=== PATIENT | male | born 1985 | race Caucasian/White ===

== ENCOUNTER 2019-08-18 00:18 | Inpatient (IN) | payer BC, MEDICAID ==
[~2019-08-18] VITALS: Ht 182.9 cm; Wt 99.8 kg
[2019-08-18] VITALS (92 sets, daily range): BP systolic 93–192; BP diastolic 5–119
[2019-08-18] MEDS ORDERED: ONDANSETRON 4 MG/2 ML VIAL ONE ×2 (00:20→00:42)
--- NOTE | 2019-08-18 00:20 | NUR ---
PT VOMITING FOOD PRODUCTS. ADMINISTERED ZOFRAN 4 MG IVP.
--- NOTE | 2019-08-18 00:20 | NUR ---
TRANSFERED TO BED 10 [facility] WITH FULL ASSIST. BAGGING VIA BVM IN PROGRESS. RT, , EMT, PRIMARY RN AT BEDSIDE. CLOTHES CUT. MAILHOUSE OPERATOR PLACED. CRASH CART AND RAPID INTUBATION TRAY AT BEDSIDE.
--- NOTE | 2019-08-18 00:25 | NUR ---
SUCCESSFULLY INTUBATED WITH 7.5 CM ET TUBE 24 CM @ THE LIP.
--- NOTE | 2019-08-18 00:27 | NUR ---
HR DROPPED TO 39 BPM. RADIAL PULSES FELT SLOW, THREADY BILATERALLY. ATROPINE 1 MG IVP ADMINISTERED PER DR. COATES.
--- NOTE | 2019-08-18 00:28 | NUR ---
NO RADIAL, FEMORAL, CAROTID PULSES FELT. CPR INITIATED. ADMINISTERED EPI. CODE STARTED.
--- NOTE | 2019-08-18 00:30 | NUR ---
RADIAL PULSES FELT BILATERALLY. CPR STOPPED. EPI ADMINISTERED.
[2019-08-18] MEDS ORDERED: DILTIAZEM 25 MG/5 ML VIAL IVP ONE (00:43)
[2019-08-18] MEDS ORDERED: PROPOFOL 1000 MG/100 ML PREMIX 100 ML IV ONE ×2 (00:44→00:50)
[2019-08-18] MEDS ORDERED: NACL 0.9% 3,000 ML IV ONE (00:50)
[2019-08-18] MEDS ORDERED: ETOMIDATE 20 MG/10 ML VIAL IVP ONE ×2 (00:50)
[2019-08-18] MEDS ORDERED: SUCCINYLCHOLINE CHLORIDE 200 MG/10 ML VIAL IVP ONE ×2 (00:50)
[2019-08-18] MEDS ORDERED: ONDANSETRON 4 MG/2 ML VIAL IVP ONE (00:50)
[2019-08-18] MEDS ORDERED: PROCHLORPERAZINE 10 MG/2 ML VIAL IVP ONE (00:50)
[2019-08-18] MEDS ORDERED: PROCHLORPERAZINE 10 MG/2 ML VIAL ONE (00:54)
--- NOTE | 2019-08-18 01:00 | NUR ---
16 CZECH INDWELLING DELGADO CATH PLACED. STERIL TECHNIQUE PERFORMED. 200ML CLEAR YELLOW URINE REMOVED UPON INSERTION. SECRED TO LEFT LEG. BAG HUNG ON LOWER SECTION OF BED BELOW PT. PT TOLLERATED PROCEDURE WELL.
[2019-08-18] MEDS ORDERED: SODIUM BICARBONATE 8.4% PFS 50 MEQ/50 ML SYR IVP ONE (01:05)
--- NOTE | 2019-08-18 01:05 | NUR ---
REVIEWED ABG SAMPLE REPORT INCREASED RATE TO 20 DESCENDING SATURATION TO 88% ON FIO2 OF 100% INCREASED PEEP TO 8 ERMD AWARE
[2019-08-18 01:06] LABS: APPEARANCE,URINE SL CLOUDY (CLEAR); BILIRUBIN,URINE NEGATIVE (NEGATIVE); BLOOD, URINE 1+ (NEGATIVE); COLOR,URINE YELLOW (YELLOW); LEUKOCYTE ESTERASE ,URINE NEGATIVE (NEGATIVE); NITRITE, URINE NEGATIVE (NEGATIVE); PH,URINE 5.5 (5.0-9.0); UGLUCOSE 2+ (NEGATIVE)
[2019-08-18] MEDS ORDERED: KETAMINE 10 MG/ML UD SYR **ER IVP ONE ×2 (01:09→01:11)
[2019-08-18] MEDS ORDERED: KETAMINE 500 MG/5 ML VIAL IVP ONE (01:10)
[2019-08-18 01:11] LABS: HEMATOCRIT 42.3 % (36-52); HEMOGLOBIN 13.5 g/dL (12.0-18.0); MEAN CORPUSCULAR HEMOGLOBIN 32 pg (27-31); MEAN CORPUSCULAR HGB CONC 32 g/dL (33-37); MEAN CORPUSCULAR VOLUME 99.8 fL (80-94); PLATELET COUNT (AUTO) 356 K/uL (140-450); RED BLOOD CELL COUNT(AUTO) 4.23 MIL/uL (4.20-6.10); WHITE BLOOD COUNT (AUTO) 23.9 K/uL (4.8-10.8)
--- NOTE | 2019-08-18 01:13 | NUR ---
NGT NOT SEEN IN XRAY. ATTEMPTING REINSERT.
[2019-08-18 01:15] LABS: BARBITURATE, URINE NEG. ng/ml (NEG <=200); BENZODIAZEPINE, URINE NEG. ng/mL (NEG <=200); CANNABINOID, URINE NEG. ng/mL (NEG <=50); COCAINE, URINE NEG. ng/mL (NEG <=300); OPIATE, URINE NEG. ng/mL (NEG <=2000); PHENCYCLIDINE SCREEN,URINE NEG. ng/mL (NEG <=25)
[2019-08-18 01:18] LABS: ANION GAP 18.1 (8-16); CARBON DIOXIDE 26.9 mmol/L (21-32); CHLORIDE 104 mmol/L (98-107); CREATININE 1.3 mg/dL (0.7-1.3); GFR ARICAN-AMERICAN 82 mL/min (>90); GLUCOSE 300 mg/dL (74-106); SODIUM SERUM 145 mmol/L (136-145); UREA NITROGEN, BLOOD 22 mg/dL (7-18)
[2019-08-18 01:19] LABS: PROTHROMBIN TIME 9.4 secs (10.8-13.4)
[2019-08-18 01:22] LABS: EOSINOPHILS % (MANUAL) 3 % (0-4); LYMPHOCYTES % (MANUAL) 64 % (20-46); MONOCYTES % (MANUAL) 3 % (5-12)
[2019-08-18 01:24] LABS: ASPARTATE AMINOTRANSFERASE 60 U/L (15-37); TOTAL BILIRUBIN 0.2 mg/dL (0.0-1.0)
[2019-08-18 01:25] LABS: ACETAMINOPHEN < 0.5 ug/ml (10-30); ALBUMIN 3.3 g/dL (3.4-5.0); SALICYLATE < 2.8 mg/dL (2.8-20.0)
[2019-08-18] MEDS ORDERED: PIPERACILLIN/TAZOBACTAM 3.375 GM in DEXTROSE 5% 50 ML IV ONE (01:25)
[2019-08-18] MEDS ORDERED: VANCOMYCIN 1,000 MG in DEXTROSE 5% 250 ML IV ONE (01:25)
[2019-08-18] MEDS ORDERED: INSULIN REGULAR, HUMAN 100 UNIT/ML VIAL SUBQ ONE (01:25)
[2019-08-18] MEDS ORDERED: VANCOMYCIN 1,000 MG VIAL ONE (01:26)
[2019-08-18] MEDS ORDERED: PIPERACILLIN/TAZOBACTAM 3.375 GM VIAL IV ONE ×2 (01:26→04:34)
[2019-08-18 01:32] LABS: RBC,URINE 20-50 /HPF (0-5); WBC,URINE 0-5 /HPF (0-5)
[2019-08-18 01:34] LABS: CKMB RELATIVE INDEX 0.1 (0.0-2.5); CREATINE KINASE MB 0.7 ng/mL (0-3.6)
--- NOTE | 2019-08-18 01:35 | NUR ---
Unable to insert NGT via nares. # 16 FR NG tube placed orally. Placement checked by auscultation of instilled air into stomach and aspiration of gastric contents. Tubing taped in place to prevent dislodging. Patient intubated. Confirmed placement with XRAY.
[2019-08-18 01:53] LABS: ACETONE, SERUM NEGATIVE (NEGATIVE)
[2019-08-18] MEDS ORDERED: LORazepam 2 MG/ML VIAL IVP ONE (01:55)
[2019-08-18 01:58] LABS: LIPASE 202 U/L (73-393)
--- NOTE | 2019-08-18 02:00 | NUR ---
NG TUBE, #16 YEMENI, INSERTED ORALLY. IMMEDIATE SUCTION OF 100 ML OF EMESIS. CHECKED WITH AUSCLETATION AND PLACEMENT CONFIRMED WITH XR. IN LOWER PORTION OF STOMACH. PT TOLLERATED WELL.
--- NOTE | 2019-08-18 02:12 | NUR ---
PT TAKEN TO CT VIA GURNORM. PRIMARY RN, EMT, AND RT PRESENT.
--- NOTE | 2019-08-18 02:30 | NUR ---
RETURNED FROM CT; TOLERATED WELL. STATUS GUARDED.
[2019-08-18 02:31] LABS: FREE T4 (FREE THYROXINE) 0.6 ng/dL (0.76-1.46); THYROID STIMULATING HORMONE 43.37 uIU/mL (0.34-3.74)
[2019-08-18] MEDS ORDERED: DEXTROSE 50% 50 ML SYR IVP ONE ×2 (02:46→05:10)
--- NOTE | 2019-08-18 02:46 | NUR ---
RT AT BEDSIDE PERFORMING FACIAL HYIGENE AND REPLACING TAPE.
[2019-08-18] MEDS ORDERED: NACL 0.9% 1,000 ML IV SCH (02:51)
[2019-08-18] MEDS ORDERED: ONDANSETRON 4 MG/2 ML VIAL IM/IVP PRN (02:55)
[2019-08-18] MEDS ORDERED: DOCUSATE SODIUM 100 MG GELCAP PO PRN (02:55)
[2019-08-18] MEDS ORDERED: MORPHINE SULFATE 2 MG/ML SYR IVP PRN (02:55)
[2019-08-18] MEDS ORDERED: ACETAMINOPHEN 325 MG TAB PO PRN (02:55)
[2019-08-18] MEDS ORDERED: HYDROcodone/APAP 7.5/325 MG 1 TAB PO PRN (02:55)
[2019-08-18] MEDS ORDERED: ACETAMINOPHEN 325 MG SUPP RC ONE (02:58)
[2019-08-18] MEDS ORDERED: TAP5 PO (03:10)
--- NOTE | 2019-08-18 03:15 | NUR ---
PT SEDATED. ET TUBE IN PLACE, MIDLINE. VENTILATOR CONNECTED. NO MOVEMENT. PROPOFOL DRIP AT 15 MCG/KG/MIN. NO TITRATION NEEDED AT THIS TIME. CONDITION GUARDED. WILL CONTINUE TO CLOSELY MONITOR.
[2019-08-18] MEDS ORDERED: ALBUTEROL SULFATE/IPRATROPIU 3 ML SOL IH PRN (03:30)
[2019-08-18] MEDS ORDERED: methylPREDNISolone SS 125 MG/2 ML VIAL IVP SCH (03:45)
[2019-08-18] MEDS ORDERED: LORazepam 2 MG/ML VIAL IVP SCH (03:50)
[2019-08-18] MEDS: DEXT 5% / NACL 0.9% 500 ML IV SCH ×4 (04:00→18:08)
--- NOTE | 2019-08-18 04:03 | NUR ---
TRANSFERRED TO ICU-5 PATIENT REMAINS ON VENTILATOR OXYGEN CONNECTED TO E-TANK TOLERATED TRANSFER WELL WITHOUT ADVERSE REACTIONS NOTED SATURATION 100% HR 101
[2019-08-18 04:06] LABS: MAGNESIUM 2.3 mg/dL (1.8-2.4); PHOSPHORUS 8.3 mg/dL (2.5-4.9)
[2019-08-18] MEDS ORDERED: LORazepam 2 MG/ML VIAL ONE (04:13)
--- NOTE | 2019-08-18 04:15 | NUR ---
PT ARRIVED IN THE UNIT VIA GURNEY FROM THE ER. VS STABLE AT THIS TIME. PT ON PROPOFOL DRIP AT 20MCG/KG/MIN WITH DRY WT AT 95KG. PT HAS VANCOMYCIN RUNNING UPON TRANSFER. DELGADO CATHETER IN PLACE. OGT IN PLACE. ETT TO VENT WITH SETTINGS FIO2 50%, TV 550, R18, AND PEEP 5. ALL PERIPHERAL IV SITES ARE PATENT, INTACT AND ASYMPTOMATIC. AFEBRILE. PERRL. LUNG SOUNDS CLEAR. S1+S2 HEARD. SR ON MONITOR. BS ACTIVE IN ALL QUADRANTS. ALL SAFETY PRECAUTIONS ARE KEPT IN PLACE.
--- NOTE | 2019-08-18 04:17 | NUR ---
REPORT GIVEN AND CARE TRANSFERED TO [facility], ICU 5. TRANSFERED VIA GURNEY WITH VSS. ACCOMPANIED BY DR WALKER, JAKE RN, YOLANDA RT, AND JOHNATHAN EMT.
--- NOTE | 2019-08-18 04:18 | NUR ---
SEDATED NO DISTRESS NOTED GOOD EQUAL CHEST RISE GOOD AERATION THROUGHOUT BILATERAL LUNG STEVENS
--- NOTE | 2019-08-18 04:44 | NUR ---
DR. TREVON WALKER AT BEDSIDE ICU-5 REVIEWED ABG SAMPLE REPORT DECREASED RATE TO 18 FIO2 TO 50% PEEP TO 5cmH2O Addendum: 08/18/19 at 0454 by Eliezer Herrera RT RIGHT JUGULAR PLACEMENT IN PROGRESS BY DR WALKER
--- NOTE | 2019-08-18 04:46 | NUR ---
SEDATED GOOD EQUAL CHEST RISE SEWER PIPE CLEANER TO SUCTION AFTER RIGHT JUGULAR PROCEDURE
[2019-08-18 05:01] LABS: MAGNESIUM 1.5 mg/dL (1.8-2.4); PHOSPHORUS 3.4 mg/dL (2.5-4.9)
[2019-08-18] MEDS ORDERED: ACETAMINOPHEN 650 MG SUPP RC ONE (05:10)
[2019-08-18 05:12] LABS: ANION GAP 14.9 (8-16); CARBON DIOXIDE 27.1 mmol/L (21-32)
--- NOTE | 2019-08-18 05:15 | NUR ---
CENTRAL LINE SUCCESSFULLY PUT IN PLACE BY DR. WALKER. WILL WAIT FOR THE CXR RESULT.
--- NOTE | 2019-08-18 05:30 | NUR ---
JAKE GALO, ORACLE REPORTS DEVELOPER ([phone]) FOR [facility] CONTACTED AND UPDATED ON PT'S STATUS AND ADMISSION TO ICU. JAKE STATES HE WILL BE CONTACTING PT'S FAMILY TO UPDATE ON STATUS.
--- NOTE | 2019-08-18 05:37 | NUR ---
RECEIVED A CALL FOR RADIOLOGY RESULT ON PT. ADVISED TO ADVANCE OGT 20CM.
--- NOTE | 2019-08-18 05:40 | NUR ---
ENDOTRACHEAL SUCTION FOR COPIOUS THIN BROWN SECRETIONS AIRWAY PATENT
--- NOTE | 2019-08-18 05:44 | NUR ---
CALLED DR. WALKER TO CLARIFY THE D50 ORDER AND TYLENOL. PER DR. WALKER DO NOT GIVE MEDICATION.
[2019-08-18] MEDS: PIPERACILLIN/TAZOBACTAM 3.375 GM in DEXTROSE 5% 50 ML IV SCH ×3 (05:45→20:19)
[2019-08-18 05:59] LABS: BASOPHILS % (AUTO) 0.3 % (0.0-2.0); EOSINOPHILS % (AUTO) 0.2 % (0.0-4.0); HEMATOCRIT 42.3 % (36-52); HEMOGLOBIN 13.9 g/dL (12.0-18.0); LYMPHOCYTES # (AUTO) 2.5 K/uL (2.0-11.5); LYMPHOCYTES % (AUTO) 22.4 % (20.5-51.1); MEAN CORPUSCULAR HEMOGLOBIN 32 pg (27-31); MEAN CORPUSCULAR HGB CONC 33 g/dL (33-37); MEAN CORPUSCULAR VOLUME 97.2 fL (80-94); MONOCYTES # (AUTO) 0.3 K/uL (0.8-1.0); MONOCYTES % (AUTO) 2.4 % (1.7-9.3); NEUTROPHILS # (AUTO) 8.3 K/uL (1.8-7.7); NEUTROPHILS % (AUTO) 74.7 % (42.2-75.2); PLATELET COUNT (AUTO) 113 K/uL (140-450); RED BLOOD CELL COUNT(AUTO) 4.36 MIL/uL (4.20-6.10); RED CELL DISTRIBUTION WIDTH 13.3 % (11.6-13.7)
[2019-08-18] MEDS: MAG SULF 2000 MG/WATER PREMIX 50 ML IV SCH ×2 (06:08→08:16)
--- NOTE | 2019-08-18 06:35 | NUR ---
PATIENT HAS BEEN SCREENED AND CATEGORIZED HIGH NUTRITION RISK. PATIENT WILL BE SEEN WITHIN 1-2 DAYS OF ADMISSION. 08/19/19-08/20/19 ROBERT DOSS MS, RDN
[2019-08-18] MEDS ORDERED: DEXTROSE 50% 50 ML SYR IVP PRN (06:40)
--- NOTE | 2019-08-18 06:40 | NUR ---
DR. HELMS AT BEDSIDE TO SEE PT. UPDATED HER REGARDING PT'S STATUS.
[2019-08-18] MEDS: ALBUTEROL SULFATE/IPRATROPIU 3 ML SOL IH SCH ×3 (06:48→19:43)
[2019-08-18] MEDS ORDERED: LEVOTHYROXINE 0.05 MG TAB PO SCH (07:00)
--- NOTE | 2019-08-18 07:15 | NUR ---
BEDSIDE REPORT RECEIVED FROM FIVE PIECE EXPANSION MAKER HAND NURSE, PT IN STABLE CONDITION, VSS ON MONITOR.
--- NOTE | 2019-08-18 07:20 | NUR ---
BEDSIDE REPORT RECEIVED FROM UTILITY WORKER DRIVER NURSE, JASEN ON MONITOR.
--- NOTE | 2019-08-18 07:40 | NUR ---
PT RESTING WITH EYES CLOSED, SEDATED TO RASS -3, PUPILS 1-2, SLUGGISH, VS STABLE, HR 98, RR 21, BP 117/64, RESP EVEN UNLABORED, ETT 24 AT LIP, 50% FIO2, RR 18, TV 550, PEEP 5, O2 SAT 100%, BS CLEAR BILAT, OGT IN PLACE, ABD ROUND SOFT, NON DISTENDED, BS + ALL 4Q, DELGADO IN PLACE, DRAINING YELLOW URINE TO GRAVITY, SKIN WARM DRY COLOR WNL, FLACC 0, PT IN SOFT WRIST RESTRAINTS, CENTRAL LINE TO RIJ, SITE WNL, PROPOFOL 20MCG/KG/MIN, DRY WT 95KG, D5NS @ 150/HR, AND MAGNESIUM INFUSING WELL. POC REVIEWED, ALL SAFETY MEASURES IN PLACE, WILL CONTINUE TO MONITOR.
--- NOTE | 2019-08-18 07:51 | NUR ---
PT ON CONTACT ISOLATION, RESTING WITH EYES CLOSED, FLACC 0, AROUSES TO PAINFUL STIMULI, NO SEDATION MEDICATIONS AT THIS TIME, RESP EVEN UNLABORED, ETT TO VENT, 30% FIO2, RR 16, TV 500, PEEP 5, BS CLEAR, DIMINISHED AT BASES, VS STABLE ON MONTOR, HR 88, RR 16, SAT 100, BP 117/74, NGT TO CONT FEED WITH VITAL AF, AT 55ML/HR, ABD SOFT NON TENDER, +BS IN ALL 4Q, RECTAL TUBE IN PLACE, LOOSE BROWN STOOL DRAINING TO GRAVITY, DELGADO IN PLACE, DRAINING CLEAR YELLOW URINE TO GRAVITY, SKIN WARM DRY COLOR WNL, 2+ PITTING EDEMA TO BILAT LEs, POC REVIEWED, ALL SAFETY MEASURES IN PLACE, WILL CONTINUE TO MONITOR. Addendum: 08/18/19 at 1701 by Priya Ellis RN DISREGARD ABOVE NOTE, WRONG PATIENT.
[2019-08-18] MEDS: CALCIUM CARB/VIT-D 500 MG/200 IU 1 TAB NG SCH (08:08)
[2019-08-18] MEDS: LACTOBACILLUS RHAMNOSUS GG 1 EACH CAP GT SCH (08:08)
[2019-08-18] MEDS: PANTOPRAZOLE 40 MG INJ VIAL IVP SCH ×2 (08:09→20:20)
[2019-08-18] MEDS: BLOOD GLUCOSE MONITORING 1 DEV DEV FS SCH ×4 (08:16→20:19)
--- NOTE | 2019-08-18 08:47 | NUR ---
TYLENOL GIVEN FOR TEMP 100.6 TA.
--- NOTE | 2019-08-18 09:15 | NUR ---
JAKE GALO [facility] [phone], CALLED TO CHECK IN ON PT'S CONDITION.
[2019-08-18] MEDS: PROPOFOL 1000 MG/100 ML PREMIX 100 ML IV PRN ×4 (10:24→23:19)
--- NOTE | 2019-08-18 11:16 | NUR ---
PT SUCTIONED OBTAINED SMALL AMOUNT OF THICK SECRETIONS, AIRWAY IS PATENT AND ETT IS SECURE. FIO2 TITRATED TO 40%. WILL CONTINUE TO MONITOR.
--- NOTE | 2019-08-18 11:43 | NUR ---
MOTHER VAIBHAV CORTÉS [phone] CALLED FOR PATIENT CONDITION, REQUESTS TO SPEAK TO DOCTOR, DR CEDILLO MADE AWARE.
--- NOTE | 2019-08-18 12:11 | NUR ---
DR RAUSCH (NEURO) AT BEDSIDE. PROPOFOL HELD PER DR RAUSCH.
--- NOTE | 2019-08-18 12:40 | NUR ---
SINCE HOLDING PROPOFOL PER DR RAUSCH, PT AGITATED, TRYING TO SIT UP, TRYING TO REACH ETT, FIGHTING VENT, PROPOFOL RESTARTED AT 1215, INCREASED PER PROTOCOL Q5MIN TO 40MCG/KG/MIN, PT FINALLY SEDATED TO RASS -3, REPOSITIONED FOR COMFORT. PT REMAINS ON SOFT WRIST RESTRAINTS.
--- NOTE | 2019-08-18 13:05 | NUR ---
MOTHER VAIBHAV CORTÉS AND STEP FATHER PAM CORTÉS ARRIVED TO BEDSIDE, CONDITION AND POC DISCUSSED BY DR CEDILLO. MOTHER VOICES THAT SHE IS UPSET THAT NO ONE CALLED HER TO NOTIFY THAT PT WAS HERE UNTIL FEW HOURS AGO THIS MORNING, IT WAS EXPLAINED TO VAIBHAV THAT [facility] WAS CONTACTING FAMILY PER JAKE GALO. NO INFORMATION REGARDING FAMILY MEMBER FOUND IN CHART AT THIS TIME, NEXT OF KIN/EMERGENCY CONTACT LISTED ON FACE SHEET IS BYRON SKELTON.
--- NOTE | 2019-08-18 13:08 | NUR ---
PT REMAINS SEDATED AT THIS TIME, NOT IN ANY DISTRESS. FAMILY IS BEDSIDE. WILL CONTINUE TO MONITOR.
--- NOTE | 2019-08-18 15:09 | NUR ---
Exercise Science Instructor Note: SW attempted to conduct assessment but patient was sedated. SW will follow up.
--- NOTE | 2019-08-18 15:24 | NUR ---
FIO2 TITRATED TO 35%. SPO2 REMAINS 98%. NURSE MADE AWARE. PT NOT IN ANY DISTRESS. WILL CONTINUE TO MONITOR.
--- NOTE | 2019-08-18 16:29 | NUR ---
TYLENOL GIVEN FOR TEMP 100.9 TA, OG TUBE FEEDING STARTED PER ORDER, STARTED AT 10ML/HR. 0 RESIDUAL AT THIS TIME. PARENTS AT BESIDE.
--- NOTE | 2019-08-18 17:30 | NUR ---
POSITION CHANGED, RECTAL TUBE IN PLACE, DRAINING WELL, AROUSES WITH CARE BUT RETURN BACK TO SLEEP IMMEDIATELY, RESP EVEN UNLABORED, ETT TO VENT AT 28%, IVF INFUSING WELL, SITE WNL, DELGADO DRAINGING WELL, NGT FEEDING ONGOING, WILL CONTINUE TO MONITOR.
--- NOTE | 2019-08-18 17:40 | NUR ---
ETT REMAINS SECURE WITH A PATENT AIRWAY. PT TOLERATING VENT SETTINGS WELL NOT IN ANY DISTRESS. FAMILY REMAINS BEDSIDE. VENT ALARMS ON AND FUNCTIONING.
--- NOTE | 2019-08-18 19:20 | NUR ---
BEDSIDE REPORT GIVEN TO CERTIFIED PROSTHETIST VICE PRESIDENT NURSE, PT IN STABLE CONDITION, VSS.
--- NOTE | 2019-08-18 19:30 | NUR ---
RECEIVED REPORT FROM RN, RANDELL, FOR CONTINUITY OF CARE. VS STABLE AT THIS TIME. AFEBRILE AT 99.8. FLACC 0. RASS -2 AND TITRATING PROPOFOL PER PARAMETER. PROPOFOL CURRENTLY RUNNING AT 35MCG/KG/MIN WITH DRY WT AT 95KG. S1+S2 HEARD. PULSES PALPABLE IN ALL EXTREMITIES. SR ON MONITOR. LUNG SOUNDS CLEAR. ETT TO VENT WITH SETTINGS: FIO2 30%, TV 550, R18 AND PEEP 5. RESPIRATIONS ARE EVEN AND UNLABORED. CHEST RISE SYMMETRIC. NO SOB OR RESPIRATORY DISTRESS NOTED. ABDOMEN ROUND SOFT AND NONDISTENDED. BS ACTIVE IN ALL QUADRANTS. OGT IN PLACE. AUSCULTATED AND ASPIRATED. ASPIRATED 150ML RESIDUAL. WILL RECHECKED. DELGADO CATHETER IN PLACE DRAINING CLEAR AND LIGHT JAYNA URINE. PT HAS PERIPHERAL IV ON RIGHT AC 20G AND LEFT WRIST 20G. PT HAS RIGHT IJ CENTRAL LINE TRIPLE LUMEN. LINES ARE PATENT, INTACT, AND ASYMPTOMATIC. PT HAS NS AT 80ML/HR. HOB AT 30 DEGREES. ALL SAFETY PRECAUTIONS ARE IN PLACE. WILL CONTINUE TO MONITOR PT.
--- NOTE | 2019-08-18 19:50 | NUR ---
RECEIVED INTUBATED PT WITH ETT SIZE 7.5 AT 24 CM @ LIP AND SECURED WITH ANCHOR-FAST. COARSE BREATH SOUNDS; SP02 100%; SUCTIONED SMALL YELLOW THICK SECRETIONS FROM ETT. PT WAS SUCCESSFULLY MOVED TO ICU8 WITH NO RESPIRATORY DISTRESS. TX GIVEN ORDERED WITH NO ADVERSE REACTION. PT ON VENT SETTINGS ORDERED; VENT PLUGGED IN RED OUTLET; BVM AT BEDSIDE; HOB>30; ALARMS FUNCTIONING AND AUDIBLE. WILL CONTINUE TO MONITOR PT
--- NOTE | 2019-08-18 20:20 | NUR ---
CALLED DR. CHAMORRO TO CLARIFY HEPARIN D/T PLATELETS CURRENTLY 113. OKAY TO GIVE
--- NOTE | 2019-08-18 20:55 | NUR ---
DR. CHAMORRO AT BEDSIDE TO SEE PT. PT'S MOTHER AT BEDSIDE.
[2019-08-18] MEDS ORDERED: OSELTAMIVIR PHOSPHATE 75 MG CAP ONE (21:49)
[2019-08-18] MEDS: OSELTAMIVIR PHOSPHATE 75 MG CAP PO SCH (21:52)
--- NOTE | 2019-08-18 23:37 | NUR ---
PT TURNED AND REPOSITIONED. NOTED TO BE COUGHING AND SUCTION PROVIDED ALONG WITH VAP ORAL CARE. VS STABLE AT THIS TIME WITH CARDIAC RHYTHM BETWEEN SR TO ST. OGT STILL IN PLACE AND NO RESIDUAL ASPIRATED. RESUMED TUBE FEEDING WITH RATE AT 20ML/HR. WILL RECHECK RESIDUAL AND INCREASE RATE TOLERATED UNTIL GOAL IS REACHED.
[2019-08-19] VITALS (89 sets, daily range): BP systolic 87–152; BP diastolic 43–90
--- NOTE | 2019-08-19 00:05 | NUR ---
NO CHANGE IN PT'S CONDITION AT THIS TIME. VS STABLE AT THIS TIME. PT'S MOTHER STILL AT BEDSIDE AT THIS TIME. FLACC 0. RASS -3. RESPIRATIONS ARE EVEN AND UNLABORED. CHEST RISE SYMMETRIC. OXYGEN SATURATION WNL. HOB 30 DEGREES. ALL SAFETY PRECAUTIONS ARE IN PLACE. WILL CONTINUE TO MONITOR PT.
--- NOTE | 2019-08-19 01:01 | NUR ---
CALLED RADIOLOGY DEPARTMENT, SPOKE WITH APARNA, INFORMED THAT PT IS READY FOR CT SCAN. PER APARNA, CT WILL BE DONE IN [address] SCAN ORDERED IS TIMED PER NEUROLOGIST. Addendum: 08/19/19 at 0119 by Elan Polk RN DR. POLK IN THE UNIT; AWARE OF THE CURRENT STATUS
[2019-08-19] MEDS: DEXT 5% / NACL 0.9% 500 ML IV SCH ×4 (02:01→20:15)
--- NOTE | 2019-08-19 02:16 | NUR ---
CALLED RADIOLOGY DEPARTMENT, SPOKE WITH AMERICA. ACCORDING TO HER THE DISPLAY CARD WRITER IS OFF THE UNIT DOING AN X-RAY IN ER. WAS INSTRUCTED TO CALL BACK IN 5 MINUTES.
--- NOTE | 2019-08-19 02:30 | NUR ---
ATTEMPTED TO TALK TO SOMEONE IN RADIOLOGY DEPARTMENT BUT NO ONE ANSWERED THE CALL.
[2019-08-19] MEDS: PROPOFOL 1000 MG/100 ML PREMIX 100 ML IV PRN ×6 (02:37→20:36)
--- NOTE | 2019-08-19 02:41 | NUR ---
CALLED THE RADIOLOGY DEPARTMENT, STILL NO ONE ANSWERING AT THIS TIME. WILL CALL AGAIN IN A FEW MINUTES.
--- NOTE | 2019-08-19 02:52 | NUR ---
SPOKE WITH APARNA FROM RADIOLOGY DEPARTMENT. PER APARNA, SHE WILL CALL THE UNIT IN ABOUT 15 MINUTES TO NOTIFY WHEN THE CT CAN BE DONE.
--- NOTE | 2019-08-19 02:59 | NUR ---
RECEIVED A CALL FROM DR. CHAMORRO, INFORMED HER THAT CT SCAN WAS STILL NOT DONE ON PT.
--- NOTE | 2019-08-19 03:33 | NUR ---
CALLED RADIOLOGY DEPARTMENT AND SPOKE WITH APARNA. CHECKED TO SEE IF CT SCAN CAN BE DONE NOW. PER APARNA SHE WILL CALL BACK. WILL FOLLOW-UP AGAIN.
--- NOTE | 2019-08-19 03:55 | NUR ---
PT TAKE TO RADIOLOGY DEPARTMENT FOR CT SCAN. VS REMAINS STABLE AT THIS TIME.
--- NOTE | 2019-08-19 04:15 | NUR ---
PT RETURNED IN THE UNIT. VS REMAINS STABLE. PT CONNECTED ON AT THE BEDSIDE MONITOR. PT TURNED AND REPOSITIONED. LINENS WERE CHANGED. ALL SAFETY PRECAUTIONS ARE IN PLACE. WILL CONTINUE TO MONITOR PT.
[2019-08-19] MEDS: methylPREDNISolone SS 40 MG/ML VIAL IVP SCH ×3 (05:03→20:14)
[2019-08-19] MEDS: PIPERACILLIN/TAZOBACTAM 3.375 GM in DEXTROSE 5% 50 ML IV SCH ×3 (05:03→20:18)
--- NOTE | 2019-08-19 05:09 | NUR ---
SX MOD YELLOW THICK SECRETIONS FROM ETT. AIRWAY IS PATENT. ETT SIZE 7.5 SECURED WITH ANCHOR-FAST AT 24. PT IS ON THE VENT SETTINGS ORDERED. WILL CONTINUE TO MONITOR.
[2019-08-19] MEDS: BLOOD GLUCOSE MONITORING 1 DEV DEV FS SCH ×4 (05:54→20:14)
[2019-08-19] MEDS: LEVOTHYROXINE 0.05 MG TAB PO SCH (05:54)
[2019-08-19 05:55] LABS: BASOPHILS % (AUTO) 0.2 % (0.0-2.0); EOSINOPHILS # (AUTO) 0.1 K/uL (0-0.4); EOSINOPHILS % (AUTO) 1.2 % (0.0-4.0); HEMATOCRIT 33.9 % (36-52); HEMOGLOBIN 11.3 g/dL (12.0-18.0); LYMPHOCYTES # (AUTO) 1.7 K/uL (2.0-11.5); LYMPHOCYTES % (AUTO) 16.4 % (20.5-51.1); MEAN CORPUSCULAR HEMOGLOBIN 32 pg (27-31); MEAN CORPUSCULAR HGB CONC 34 g/dL (33-37); MEAN CORPUSCULAR VOLUME 95.8 fL (80-94); MONOCYTES # (AUTO) 0.7 K/uL (0.8-1.0); MONOCYTES % (AUTO) 6.7 % (1.7-9.3); NEUTROPHILS # (AUTO) 7.7 K/uL (1.8-7.7); NEUTROPHILS % (AUTO) 75.5 % (42.2-75.2); PLATELET COUNT (AUTO) 224 K/uL (140-450); RED BLOOD CELL COUNT(AUTO) 3.54 MIL/uL (4.20-6.10); RED CELL DISTRIBUTION WIDTH 13.6 % (11.6-13.7); WHITE BLOOD COUNT (AUTO) 10.2 K/uL (4.8-10.8)
--- NOTE | 2019-08-19 06:38 | NUR ---
DR. HELMS AT BEDSIDE TO SEE PT. UPDATED HER REGARDING PT'S CONDITION.
[2019-08-19 06:48] LABS: MAGNESIUM 2.1 mg/dL (1.8-2.4); PHOSPHORUS 2.6 mg/dL (2.5-4.9)
[2019-08-19 06:51] LABS: CHOL/HDL RATIO 3.5 (1-4.5)
[2019-08-19 06:54] LABS: ALBUMIN 2.7 g/dL (3.4-5.0); ANION GAP 10.7 (8-16); ASPARTATE AMINOTRANSFERASE 53 U/L (15-37); CHLORIDE 106 mmol/L (98-107); CREATININE 0.8 mg/dL (0.7-1.3); GFR ARICAN-AMERICAN 143 mL/min (>90); GLUCOSE 104 mg/dL (74-106); POTASSIUM 3.7 mmol/L (3.5-5.1); SODIUM SERUM 139 mmol/L (136-145); THYROID STIMULATING HORMONE 13.24 uIU/mL (0.34-3.74); TOTAL BILIRUBIN 0.8 mg/dL (0.0-1.0); UREA NITROGEN, BLOOD 9 mg/dL (7-18)
[2019-08-19] MEDS: ALBUTEROL SULFATE/IPRATROPIU 3 ML SOL IH SCH ×3 (07:01→19:00)
--- NOTE | 2019-08-19 07:10 | NUR ---
RECEIVED INTUBATED PT WITH A 7.5 ETT SECURED @23TEETH/GUM ON VENT. SETTINGS A/C VC 18, VT 550, PEEP 5 AND FIO2 30%. PT IS SEDATED AT THIS TIME NOT IN ANY DISTRESS. VENT IS PLUGGED INTO A RED OUTLET WITH ALARMS ON AND FUNCTIONING. THERE IS NOT BITING OR KINKING OF ETT. AMBU BAG IS PRESENT NEAR BEDSIDE. WILL CONTINUE TO MONITOR.
--- NOTE | 2019-08-19 07:25 | NUR ---
[facility], PT STABLE ON MONITOR, HR 84,RR18,O2SAT 95%,BP 111/56,TEMP 99.2 TA, DRY WT 95KG, SEDATED WITH PROPOFOL AT 50MCG/KG/MIN RASS -3, PUPIL 2 SLUGGISH, RESP EVEN UNLABORED, ON ETT TO VENT, 23 AT TEETH, FIO2 30%, RR 18, VT 550, PEEP 5, HEART SOUNDS REGULAR, <2 CAP REFILL, CENTRAL LINE TO [facility] SITE WNL, OGT IN PLACE, VITAL AF FEEDING ONGOING AT 30ML/HR AT THIS TIME, <5ML RESIDUAL AT THIS TIME, ABD SOFT, +BS X4Q, DELGADO DRAINING CLEAR YELLOW URINE TO GRAVITY, SKIN INTACT WARM COLOR WNL. ALL SAFETY MEASURES IN PLACE, POC REVIEWED, WILL CONTINUE TO MONITOR.
--- NOTE | 2019-08-19 08:05 | NUR ---
DR ARAUJO AT BEDSIDE.
[2019-08-19] MEDS: LACTOBACILLUS RHAMNOSUS GG 1 EACH CAP GT SCH (09:25)
[2019-08-19] MEDS: FLUoxetine 20 MG CAP PO SCH (09:25)
[2019-08-19] MEDS: CALCIUM CARB/VIT-D 500 MG/200 IU 1 TAB NG SCH (09:26)
[2019-08-19] MEDS: OSELTAMIVIR PHOSPHATE 75 MG CAP PO SCH ×2 (09:26→22:00)
[2019-08-19] MEDS: PANTOPRAZOLE 40 MG INJ VIAL IVP SCH ×2 (09:26→20:15)
[2019-08-19] MEDS: fentaNYL 1 MG in NACL 0.9% 80 ML IV PRN ×2 (09:40→20:17)
--- NOTE | 2019-08-19 09:42 | NUR ---
FENTANYL DRIP STARTED PER ORDER
--- NOTE | 2019-08-19 11:24 | NUR ---
PT SEDATED NOT IN ANY DISTRESS AT THIS TIME. PT SUCTIONED OBTAINED SMALL AMOUNT OF BLOODY SECRETIONS, AIRWAY IS PATENT AND ETT IS SECURE. WILL CONTINUE TO MONITOR.
[2019-08-19] MEDS: INSULIN LISPRO SLIDING SCALE 100 UNITS/ML VIAL SUBQ PRN ×2 (13:45→17:51)
--- NOTE | 2019-08-19 14:23 | NUR ---
DR HELMS MADE AWARE THAT PT IS TILL ON 50MCG/KG/MIN PROPOFOL, FENTANYL 95MCG/HR, STILL AROUSES AND TRIES TO SIT UP AND REACH FOR ETT WITH TOUCH. WILL PAGE DR ARAUJO PER DR HELMS.
--- NOTE | 2019-08-19 15:15 | NUR ---
DR SOLER PAGED AND CALLED BACK, INFORMED HER OF PROPOFOL RATE AND FENTANYL RATE AND PATIENT IS STILL AROUSABLE WITH LIGHT TOUCH OR CARE, VERSED DRIP ORDER RECEIVED.
[2019-08-19] MEDS: MIDAZOLAM MDV 50 MG in NACL 0.9% 40 ML IV PRN (17:51)
--- NOTE | 2019-08-19 17:51 | NUR ---
PT AROUSES TO LIGHT TOUCH, ATTEMPTS TO SIT UP, BITING DOWN IN ETT, OGT DISLODGED, AND REMOVED, VERSED DRIP STARTED AT THIS TIME PER ORDER.
--- NOTE | 2019-08-19 19:00 | NUR ---
OG REPLACED 14FR, POSITION CONFIRMED WITH AUSCULTATION, UNABLE TO ASPIRATE, WILL ASK TO ORDER CONFIRMATION XRAY, BEFORE RESUMING FEEDING.
--- NOTE | 2019-08-19 19:20 | NUR ---
BEDSIDE REPORT GIVEN TO ALEC BANGURA
--- NOTE | 2019-08-19 19:30 | NUR ---
RECEIVED REPORT FROM MORNING RN, RANDELL, FOR CONTINUITY OF CARE. VS STABLE AT THIS TIME. FLACC 0. RASS -3. PT CURRENTLY SEDATED WITH PROPOFOL AT 50MCG/KG/MIN WITH DRY WT 95KG. PT ALSO ON VERSED DRIP AT 1MG/HR AND FENTANYL DRIP AT 1.5MCG/KG/HR. S1+S2 HEARD. PULSES PALPABLE IN ALL EXTREMITIES. SR ON MONITOR. LUNG SOUNDS CLEAR. ETT TO VENT WITH SETTINGS: FIO2 30%, TV 550, R18, PEEP 5. RESPIRATIONS EVEN AND UNLABORED. NEWLY INSERTED OGT FROM PREVIOUS SHIFT. CHECKED PLACEMENT BUT WAITING FOR XRAY RESULT. ABDOMEN ROUND, SOFT AND NONDISTENDED. BS ACTIVE IN ALL QUADRANTS. DELGADO CATHETER IN PLACE DRAINING CLEAR AND YELLOW URINE. PT HAS RIGHT IJ CENTRAL LINE THAT IS PATENT, INTACT AND ASYMPTOMATIC. PT HAS PERIPHERAL IV ACCESS ON RIGHT AC 20G. PT HAS D5 NS RUNNING AT 80ML/HR. HOB AT 30 DEGREES. PT TURNED AND REPOSITIONED. ALL SAFETY PRECAUTIONS ARE IN PLACE. WILL CONTINUE TO MONITOR PT.
--- NOTE | 2019-08-19 22:10 | NUR ---
VS STABLE. HOB KEPT AT [address] CHAMORRO REGARDING THE CXR RESULT THAT SHOWS OGT IS IN THE RIGHT POSITION. FEEDING RESUMED.
--- NOTE | 2019-08-19 23:42 | NUR ---
RECEIVED A CALL FROM PT'S MOTHER, SHE WANTED TO ASK AGAIN REGARDING THE RECORDS FROM THE AMBULANCE AND WAS LOOKING FOR THE PT'S DOCTOR. INFORMED HER THAT THIS WILL BE FOLLOWED-UP.
[2019-08-20] VITALS (104 sets, daily range): BP systolic 109–163; BP diastolic 61–95
--- NOTE | 2019-08-20 00:02 | NUR ---
PT'S HR AT AROUND 60S AT THIS TIME. STILL GETTING PT OFF PROPOFOL. PT TURNED AND REPOSITIONED. ORAL CARE PROVIDED. RESPIRATIONS ARE EVEN AND UNLABORED. NO OTHER CHANGES IN PT'S CONDITION. TOLERATING TUBE FEEDING FAIRLY. NO RESIDUAL ASPIRATED AT THIS TIME. WILL CONTINUE TO MONITOR PT.
[2019-08-20] MEDS: DEXT 5% / NACL 0.9% 500 ML IV SCH ×4 (01:23→20:08)
--- NOTE | 2019-08-20 02:20 | NUR ---
NO CHANGE IN PT'S CONDITION AT THIS TIME. TOLERATING FEEDING WELL. AFEBRILE. FLACC 0. DOES NOT APPEAR TO BE EXPERIENCING ANY DISCOMFORT AT THIS TIME. PT TURNED AND REPOSITIONED. NO SKIN BREAKDOWN NOTED. ALL SAFETY PRECAUTIONS ARE IN PLACE WILL CONTINUE TO MONITOR PT.
[2019-08-20] MEDS: fentaNYL 1 MG in NACL 0.9% 80 ML IV PRN ×5 (03:34→23:19)
--- NOTE | 2019-08-20 04:20 | NUR ---
PT TURNED AND REPOSITIONED. VAP ORAL CARE PROVIDED. DELGADO CATHETER CARE PROVIDED. MORNING CARE PROVIDED TO PT. RESPIRATIONS EVEN AND UNLABORED. ALL SAFETY PRECAUTIONS REMAINS IN PLACE. WILL CONTINUE TO MONITOR PT.
[2019-08-20] MEDS: PIPERACILLIN/TAZOBACTAM 3.375 GM in DEXTROSE 5% 50 ML IV SCH ×3 (04:39→22:33)
[2019-08-20] MEDS: methylPREDNISolone SS 40 MG/ML VIAL IVP SCH ×3 (04:39→22:11)
[2019-08-20 06:03] LABS: BASOPHILS % (AUTO) 0.1 % (0.0-2.0); HEMOGLOBIN 11.2 g/dL (12.0-18.0); LYMPHOCYTES # (AUTO) 0.8 K/uL (2.0-11.5); MEAN CORPUSCULAR HEMOGLOBIN 32 pg (27-31); MEAN CORPUSCULAR HGB CONC 33 g/dL (33-37); MEAN CORPUSCULAR VOLUME 95.5 fL (80-94); MONOCYTES # (AUTO) 0.4 K/uL (0.8-1.0); MONOCYTES % (AUTO) 3.5 % (1.7-9.3); NEUTROPHILS # (AUTO) 10.8 K/uL (1.8-7.7); NEUTROPHILS % (AUTO) 89.4 % (42.2-75.2); PLATELET COUNT (AUTO) 249 K/uL (140-450); RED BLOOD CELL COUNT(AUTO) 3.56 MIL/uL (4.20-6.10); RED CELL DISTRIBUTION WIDTH 13.6 % (11.6-13.7)
[2019-08-20] MEDS: LEVOTHYROXINE 0.05 MG TAB PO SCH (06:08)
--- NOTE | 2019-08-20 06:38 | NUR ---
DR. STARKS AT BEDSIDE TO SEE PT. UPDATED HIM REGARDING PT'S CONDITION
[2019-08-20 06:50] LABS: ANION GAP 11.4 (8-16); CARBON DIOXIDE 25.8 mmol/L (21-32); CREATININE 0.7 mg/dL (0.7-1.3); POTASSIUM 4.2 mmol/L (3.5-5.1)
[2019-08-20 06:51] LABS: MAGNESIUM 1.9 mg/dL (1.8-2.4); PHOSPHORUS 3.2 mg/dL (2.5-4.9)
--- NOTE | 2019-08-20 07:09 | NUR ---
RECEIVED BEDSIDE REPORT FROM ALAN COLLAR SEPARATOR RN, FOR CONTINUITY OF CARE. PATIENT IS SEDATED WITH VERSED 4MG/HR AND FENTANYL 2MCG/KG/HR, RASS -3. PATIENT SKIN IS WARM, DRY, INTACT,HE HAS RIJ IN PLACE. HE HAS ETT TO VENT, BREATHING EVEN AND UNLABORED. PATIENT IS SB ON MONITOR, FLACC 0. HE HAS OGT IN PLACE TO FEEDING VITAL AF. PATIENT HAS DELGADO CATHETER IN PLACE. HOB IS 30 DEGREES, NO SIGNS OF DISTRESS NOTED. WILL CONTINUE TO MONITOR.
[2019-08-20] MEDS: ALBUTEROL SULFATE/IPRATROPIU 3 ML SOL IH SCH ×3 (07:33→19:12)
--- NOTE | 2019-08-20 07:43 | NUR ---
RECEIVED INTUBATED PT WITH A 7.5 ETT SECURED @23TEETH/GUM ON VENT. SETTINGS A/C VC 18, VT 550, PEEP 5 AND FIO2 30%. VENT IS PLUGGED INTO A RED OUTLET WITH ALARMS ON AND FUNCTIONING. PT OPENS HIS EYES AND IS AGITATED AT THIS TIME, NURSE AWARE AND INCREASED SEDATION. AMBU BAG IS PRESENT NEAR BEDSIDE. WILL CONTINUE TO MONITOR.
[2019-08-20] MEDS: BLOOD GLUCOSE MONITORING 1 DEV DEV FS SCH ×4 (08:08→22:00)
[2019-08-20] MEDS: MIDAZOLAM MDV 50 MG in NACL 0.9% 40 ML IV PRN ×2 (08:14→15:14)
[2019-08-20] MEDS: LACTOBACILLUS RHAMNOSUS GG 1 EACH CAP GT SCH (08:54)
[2019-08-20] MEDS: CALCIUM CARB/VIT-D 500 MG/200 IU 1 TAB NG SCH (08:54)
[2019-08-20] MEDS: FLUoxetine 20 MG CAP PO SCH (08:54)
[2019-08-20] MEDS: PANTOPRAZOLE 40 MG INJ VIAL IVP SCH ×2 (08:54→22:11)
[2019-08-20] MEDS: OSELTAMIVIR PHOSPHATE 75 MG CAP PO SCH ×2 (08:55→22:11)
--- NOTE | 2019-08-20 09:00 | NUR ---
PATIENT'S MOM IS HERE, UPDATED ON PATIENT'S CONDITION.
--- NOTE | 2019-08-20 11:14 | NUR ---
VENT CHECK COMPLETED. PT SEDATED AT THIS TIME NOT IN ANY DISTRESS. WILL CONTINUE TO MONITOR.
--- NOTE | 2019-08-20 14:10 | NUR ---
PATIENTS MOM IS HERE AT BEDSIDE
--- NOTE | 2019-08-20 14:32 | NUR ---
08/20/19 RD INITIAL ASSESSMENT COMPLETED PLEASE REFER TO NUTRITION ASSESSMENT UNDER CARE ACTIVITY FOR ESTIMATED NUTRITIONAL NEEDS. 1. RECOMMEND INCREASING VITAL AF 1.2 TO 70 ML/HR 2. CONTINUE FREE WATER FLUSH OF 100 ML Q6H 3. IF/WHEN PT IS EXTUBATED, CONSIDER ORDERING A SWALLOW EVAL TO ADVANCE TO PO DIET 4. RD TO FOLLOW-UP 2-3 DAYS, HIGH RISK [place] HDOGES, REBECCA
--- NOTE | 2019-08-20 14:52 | NUR ---
DISCHARGE PLANNIN34 Y/O MALE PATIENT FROM A REHAB FACILITY ([facility]), WHO CAME IN DUE TO OVERDOSE. WAS FOUND DOWN AND IN AGONAL BREATHING AT THE REHAB FACILITY. WAS INTUBATED IN THE ED, TRANSFERRED TO ICU AND WAS PLACED ON VENT FIO2 100%. PAST MEDICAL HISTORY INCLUDE THYROTOXICOSIS/HYPERTHYROID, COCAINE, METH AND HEROINE ABUSE. INITIAL DIAGNOSIS OF OVERDOSE. LABS ON ADMISSION INCLUDE WBC 23.9, H/H 13.5/42.3, LACTIC ACID 9.4. UDS (+) FOR AMPHETAMINES. CXR SHOWED RIGHT UPPER LOBE INFILTRATE. HEAD CT SHOWED INCREASING SINUS DISEASE. ABDOMINAL US SHOWED HEPATOMEGALY. ON ZOSYN AND SOLU MEDROL IV. POSITIVE FOR INFLUENZA A&B. NEURO CONSULT WITH DR. RAMACHANDRAN FOR ABNORMAL HEAD CT/ S/P CPR. PULMO CONSULT WITH DR. GARCIA FOR RESPIRATORY FAILURE. ON VERSED AND FENTANYL DRIP. DC PLAN PENDING ON PATIENT'S RESPONSE TO TREATMENT. Addendum: 08/22/19 at 1048 by Francoise Pearson PATIENT GOT EXTUBATED YESTERDAY AT 1119 AND WAS PLACED ON O2 AT 3LPM/NC, SATURATION 98%. FC DISCONTINUED. ON NPO EXCEPT MEDS. FOR SWALLOW EVAL TODAY. CURRENT LABS INCLUDE 10.9, H/H 10.6/32.0. PULMO AND NEURO CONSULT IN PLACE. CXR SHOWED RESOLVED PULMONARY INFILTRATES SINCE THE PRIOR EXAM.
--- NOTE | 2019-08-20 16:49 | NUR ---
Religious Leader Note: I called patient's mother Jannet Saucedo , no answer, left message.
--- NOTE | 2019-08-20 17:53 | NUR ---
PT REMAINS ON DOCUMENTED VENT SETTINGS. ETT IS SECURE WITH A PATENT AIRWAY. PT NOT IN ANY DISTRESS AT THIS TIME. VENT ALARMS REMAIN ON AND FUNCTIONING.
--- NOTE | 2019-08-20 18:09 | NUR ---
IS HERE UPDATED ON PATIENT'S CONDITION, WILL FOLLOW UP ON ANY ORDERS
--- NOTE | 2019-08-20 18:30 | NUR ---
PER DR. KIRAN, START WEANING PATIENT OFF VENT TOMORROW MORNING, D/C VERSED AND FENTANYL AND START ON PROPOFOL. DR. POLK IS AWARE.
--- NOTE | 2019-08-20 19:25 | NUR ---
CHANGE OF SHIFT REPORT BY DAY SHIFT NURSE SHAHEEN AT BEDSIDE. PATIENT ETT TO VENT. OGT IN PLACE BY POSITIVE PLACEMENT CHECK. NO RESIDUAL NOTED. PATIENT ON FEEDING VITAL AF 1.2 RATE OF 60. WITH WATER FLUSH 100Q6H. D5 NS AT 80 . PATIENT ON VERSED 9ML AND FENTANYL 2 MCG (MAXED PER DAY NURSE) DAY NURSE STATES PER MD KIRAN WHO CAME TODAY, TO CONTINUE FENTANYL AND VERSED PER AND STOP AND CHANGE TO PROPOFOL TOMORROW AT 0800. STATES NEED TO CALL EXECUTIVE ASSOCIATE FOR KEYS TO UNLOCK THE VERSED AND FENTANYL. A/C- FIO2 [id number] 18-60-7. DRY WEIGHT 95 KG. RASS -3. PATIENT IN SOFT RESTRAINTS AT THIS TIME. ALL SKIN INTACT. AFEBRILE. LUNG SOUNDS CLEAR. RESPIRATIONS SYMMETRICAL AND HR REGULAR. BOWEL SOUNDS ACTIVE AT THIS TIME. REPOSITIONED PATIENT. VAP ORAL CARE PERFORMED. RT LAUREN PRESENT FOR BREATHING TX. SIDE RAILS UP. BED IN LOWEST POSITION. RIGHT AC SALINE LOCK. RIGHT IJ RUNNING FLUIDS. BOTH ASYMPT. OF INFECTION. NO REDNESS NO SWELLING. DROPLET PRECAUTION. POSITIVE FOR INFLUENZA A AND B. WILL CONTINUE TO MONITOR.
--- NOTE | 2019-08-20 19:28 | NUR ---
RECEIVED PATIENT ETT TO MECHANICAL VENTILATOR AT DOCUMENTED SETTINGS. AIRWAY SECURE AND PATENT. SUCTIONED SCANT AMOUNT OF THICK, WHITE SECRETIONS. VENT CHECK DONE. VENT PLUGGED INTO RED OUTLET WITH WHEELS LOCKED. AMBU BAG AT [facility]. VENT ALARMS ON AND AUDIBLE. SCHEDULED BREATHING TREATMENT ADMINISTERED. TOLERATED TX WELL WITHOUT ADVERSE SIDE EFFECTS. ORAL VAP CARE DONE. NO ACUTE RESPIRATORY DISTRESS NOTED AT THIS TIME. WILL CONTINUE TO MONITOR.
--- NOTE | 2019-08-20 20:03 | NUR ---
PATIENT FAMILY MEMBER CAME IN ROOM. DROPLET PRECAUTION DONE BY FAMILY.
[2019-08-20] MEDS: MIDAZOLAM MDV 100 MG in NACL 0.9% 80 ML IV PRN (20:40)
--- NOTE | 2019-08-20 21:00 | NUR ---
MEDICATION ADMINISTRATION ORDERED BY MD. PATIENT TOLERATED WELL. NO RESIDUAL. BP LOW. [facility] [employer]. DR. CANO CUT TO LENGTH OPERATOR. Addendum: 08/21/19 at 0641 by Octavia Shea RN WRONG PATIENT NOTE. DELETE FOR THIS PATIENT
[2019-08-20] MEDS ORDERED: PIPERACILLIN/TAZOBACTAM 3.375 GM VIAL IV ONE (22:27)
[2019-08-20] MEDS: INSULIN LISPRO SLIDING SCALE 100 UNITS/ML VIAL SUBQ PRN (22:32)
--- NOTE | 2019-08-20 23:50 | NUR ---
SPOKE WITH DR. POLK. NOTIFIED HER OF WHAT DAY SHIFT ENDORSED TO ME. TO KEEP ON VERSED AND FENTANYL UNTIL DAY SHIFT. STATES IF CANNOT FIND IT, JUST DO WHAT WAS ENDORSED TO YOU FROM DAY SHIFT UNTIL TOMORROW MORNING.
[2019-08-21] VITALS (51 sets, daily range): BP systolic 115–163; BP diastolic 59–108
--- NOTE | 2019-08-21 | NUR ---
PATIENT VAP ORAL CARE PERFORMED. TOLERATED WELL. WILL CONTINUE TO MONITOR.
--- NOTE | 2019-08-21 00:37 | NUR ---
VAP ORAL CARE PERFORMED. PATIENT TOLERATED WELL. BITE BLOCK REQUESTED D/T PATIENT BITING ON TUBING. ALARMING MACHINE. LAUREN GARCIA.
--- NOTE | 2019-08-21 02:06 | NUR ---
PATIENT SLEEPING AT THIS TIME. WILL APPLY BITE BLOCK LATER IFNEEDED PER RT LAUREN.
[2019-08-21] MEDS: DEXT 5% / NACL 0.9% 500 ML IV SCH (02:18)
--- NOTE | 2019-08-21 04:00 | NUR ---
RT CALLED FOR BITE BLOCK. PATIENT KEEPS BITING ET TUBE. BITE BLOCK APPLIED WITH RT. PATIENT RESPONDS IN AND OUT AND FOLLOWS COMMANDS WHEN IN AND OUT OF SEDATION. PATIENT CALMS DOWN WHEN SPOKEN TO. TRYING TO SIT UP. RT EXPLAINED SITUATION TO PATIENT. PATIENT STATES HE UNDERSTANDS. WILL CONTINUE TO MONITOR.
[2019-08-21] MEDS ORDERED: PIPERACILLIN/TAZOBACTAM 3.375 GM VIAL IV ONE (04:39)
--- NOTE | 2019-08-21 05:23 | NUR ---
MORNING CARE PERFORMED. CLEANED ARMS UPPER BODY AND FACE. PATIENT SHAKES HEAD NO AND APPEARS AGITATED. ASKED IF HE WANTED TO STOP MORNING CARE, PATIENT SHOOK HEAD YES. THEN PATIENT BECAME SEDATED AGAIN. WILL ENDORSE TO DAY SHIFT NURSE. TOLERATED EYE CLEANING. 525 CC OUTPUT. JAYNA URINE. WILL CONTINUE TO MONITOR.
[2019-08-21] MEDS: PIPERACILLIN/TAZOBACTAM 3.375 GM in DEXTROSE 5% 50 ML IV SCH ×3 (05:26→20:31)
[2019-08-21] MEDS: methylPREDNISolone SS 40 MG/ML VIAL IVP SCH ×3 (05:27→20:30)
[2019-08-21] MEDS: LEVOTHYROXINE 0.05 MG TAB PO SCH (05:27)
[2019-08-21] MEDS: fentaNYL 1 MG in NACL 0.9% 80 ML IV PRN (05:45)
[2019-08-21 06:12] LABS: ANION GAP 11.3 (8-16); CARBON DIOXIDE 28.7 mmol/L (21-32); CREATININE 0.6 mg/dL (0.7-1.3)
[2019-08-21 06:15] LABS: MAGNESIUM 1.9 mg/dL (1.8-2.4); PHOSPHORUS 2.7 mg/dL (2.5-4.9)
--- NOTE | 2019-08-21 06:18 | NUR ---
DR STARKS PRESENT AT BEDSIDE. UPDATED HIM THAT IT WAS ENDORSED TO ME PRIOR DAY SHIFT NURSE SHAHEEN STATED THAT MD KIRAN STATED OK TO KEEP ON FENTANYL AND VERSED AND TO START PROPOFOL IN AM FOR WEANING. PATIENT RESPONDS TO NOISE AND TOUCH. 525 CC OF URINE OUTPUT NOTED.
[2019-08-21 06:29] LABS: HEMATOCRIT 32.9 % (36-52); HEMOGLOBIN 10.8 g/dL (12.0-18.0); LYMPHOCYTES # (AUTO) 0.9 K/uL (2.0-11.5); LYMPHOCYTES % (AUTO) 8.3 % (20.5-51.1); MEAN CORPUSCULAR HEMOGLOBIN 32 pg (27-31); MEAN CORPUSCULAR HGB CONC 33 g/dL (33-37); MEAN CORPUSCULAR VOLUME 96.3 fL (80-94); MONOCYTES # (AUTO) 0.4 K/uL (0.8-1.0); MONOCYTES % (AUTO) 3.6 % (1.7-9.3); NEUTROPHILS # (AUTO) 9.8 K/uL (1.8-7.7); NEUTROPHILS % (AUTO) 88.1 % (42.2-75.2); PLATELET COUNT (AUTO) 273 K/uL (140-450); RED BLOOD CELL COUNT(AUTO) 3.42 MIL/uL (4.20-6.10); RED CELL DISTRIBUTION WIDTH 13.6 % (11.6-13.7); WHITE BLOOD COUNT (AUTO) 11.1 K/uL (4.8-10.8)
--- NOTE | 2019-08-21 06:42 | NUR ---
REC'D PT ON [employer] VENT SETTINGS AC 18 VT550 PEEP 5 FIO2 28% ALARMS ON AND AUDIBLE AND AMBU BAG AT SIDE OF VENT AND VENT IS PLUGGED INTO RED OUTLET, NO HHN GIVEN TO PT SLEEPING WITH NO SIGNS OF DISTRESS NOTED AT THIS TIME, B\S ARE CLEAR BILATERALLY, SXN PT SMALL AMT OF YELLOW SECRETIONS, PT IS ORALLY INTUBATED WITH 7.5 ET TUBE SECURED WITH ANCHOR FAST AT 24 CM PT IS SLEEPING
[2019-08-21] MEDS: ALBUTEROL SULFATE/IPRATROPIU 3 ML SOL IH SCH ×3 (07:00→18:49)
--- NOTE | 2019-08-21 07:15 | NUR ---
PT VSS. NO S/S/ OF DISTRESS NOTED. NO SOB. FLACC O. SAFETY MEASURES IN PLACE. ENDORSED TO DAY SHIFT.
[2019-08-21] MEDS: BLOOD GLUCOSE MONITORING 1 DEV DEV FS SCH ×4 (07:30→20:32)
--- NOTE | 2019-08-21 07:30 | NUR ---
RECEIVED BEDSIDE REPORT FROM LOCKER OPERATOR RN. PT IS SEDATED, RASS -3. AFEBRILE. FLACC 0. SR-SB ON MONITOR. S1 S2 HEARD. ETT TO VENT WITH SETTINGS: AC VC FIO2 28%, VT 550, PEEP 5, RR 18. BREATHING EVEN AND UNLABORED. LUNGS SOUND CLEAR BILATERALLY. OGT IN PLACE, PLACEMENT CONFIRMED. PT IS RECEIVING TUBE FEEDING VITAL AF AT 60 ML/HR (GOAL 70ML/HR) WITH FWF 100 ML Q6H. NO RESIDUALS NOTED. ABDOMEN SOFT AND NONTENDER W/ ACTIVE BOWEL SOUNDS. CENTRAL LINE TLC TO RIGHT IJ PATENT AND INTACT. PT IS ON VERSED DRIP AT 9 MG/HR AND FENTANYL AT 2 MCG/KG/HR, IVF D5NS AT 80 ML/HR. DRY WEIGHT 95 KG. [address]GADO CATH IN PL[address] DRAINING CLEAR YELLOW URINE TO GRAVITY. SKIN IS INTACT, DRY AND WARM TO TOUCH. HOB 30 DEGREES, BED IN LOWEST POSITION LOCKED, CALL LIGHT WITHIN REACH. NO SIGNS OF DISTRESS AT THIS TIME. WILL CONTINUE TO MONITOR.
[2019-08-21] MEDS: MIDAZOLAM MDV 100 MG in NACL 0.9% 80 ML IV PRN (07:57)
--- NOTE | 2019-08-21 08:10 | NUR ---
DR. MILLS AND RESIDENT GROUP IN TO SEE PT. WILL FOLLOW UP ON ORDERS.
--- NOTE | 2019-08-21 08:28 | NUR ---
RASS SCORES Q15 MINUTES FOR VERSED AND FENTANYL IS DOCUMENTED IN COLUMN OF PROPOFOL D/T NOT KNOWING WHERE TO PLACE IT. PROPOFOL NOT GIVEN ON MY TRAFFIC CONTROLLER CABLE. JUST USED FOR RASS SCORES OF FENTANYL AND VERSED
[2019-08-21] MEDS: PANTOPRAZOLE 40 MG INJ VIAL IVP SCH ×2 (09:19→20:30)
[2019-08-21] MEDS: FLUoxetine 20 MG CAP PO SCH (09:19)
[2019-08-21] MEDS: CALCIUM CARB/VIT-D 500 MG/200 IU 1 TAB NG SCH (09:19)
[2019-08-21] MEDS: LACTOBACILLUS RHAMNOSUS GG 1 EACH CAP GT SCH (09:22)
[2019-08-21] MEDS: OSELTAMIVIR PHOSPHATE 75 MG CAP PO SCH ×2 (09:22→20:39)
--- NOTE | 2019-08-21 09:45 | NUR ---
SPOKE WITH DR. KIRAN REGARDING SBT. ORDER RECEIVED. RT AWARE.
--- NOTE | 2019-08-21 10:00 | NUR ---
PT PLACED ON CPAP 5 PS 10 AND FAILED WEANING FOUR TIMES DUE TO VERY LOW RR OF 6 PLACED BACK ON AC MODE AND RN BACILIO NOTIFIED
[2019-08-21] MEDS: PROPOFOL 1000 MG/100 ML PREMIX 100 ML IV PRN (10:54)
--- NOTE | 2019-08-21 11:00 | NUR ---
DR. KIRAN IN TO SEE PT. WILL FOLLOW UP ON ORDERS.
--- NOTE | 2019-08-21 11:19 | NUR ---
PT EXTUBATED PLACE ON 3LNC AND PER DR KIRAN VENT IS ON STANDBY FOR 24 HOURS
--- NOTE | 2019-08-21 11:19 | NUR ---
PT EXTUBATED. DR. KIRAN AND RT AT BEDSIDE. VSS. PER DR. KIRAN, WILL ORDER SWALLOW EVAL TOMORROW. KEEP PT ON IVF D5NS AT THIS TIME.
[2019-08-21] MEDS: DEXT 5% /NACL 0.9% 1,000 ML IV SCH (11:52)
--- NOTE | 2019-08-21 11:55 | NUR ---
Retail Advertising Account Executive Note: I called patient's mother Jannet Saucedo , no answer, left message. Addendum: 08/22/19 at 1435 by Heather Santiago CM Received a request for medical records from pt's rehab facility. Jessica met with pt at the bedside. Pt was a&o x4, able to engage in a conversation and answer questions appropriately. Sw showed pt the request presented by his rehab and pt stated he did sign the release of medical records and he's agreeable to have that request process. Medical Records business process representative present and aware. Heather Santiago, [facility] Ext [phone]
--- NOTE | 2019-08-21 14:05 | NUR ---
PT AGITATED, TRYING TO GET OUT BED AND PULLING EKG CABLES AND OXIMIZER. REORIENTED PT AND PUT O2 AND EKG BACK ON. DR. STARKS MADE AWARE.
--- NOTE | 2019-08-21 16:46 | NUR ---
PT STATED HE IS ALLERGIC TO TORADOL, SEROQUEL AND HALDOL. DR. STARKS AND PHARMACY MADE AWARE.
--- NOTE | 2019-08-21 17:05 | NUR ---
DR. STARKS AT BEDSIDE SPEAKING WITH PT AND FAMILY.
[2019-08-21] MEDS ORDERED: diphenhydrAMINE 50 MG/ML VIAL IVP SCH (17:15)
--- NOTE | 2019-08-21 19:02 | NUR ---
RECEIVED PATIENT ON 5L OXYMIZER, PULSE OX SAT 100%. SCHEDULED BREATHING TX ADMINISTERED. TOLERATED TX WELL WITHOUT ADVERSE SIDE EFFECTS. TITRATED TO 3L OXYMIZER, PULSE OX SAT 99%. NO ACUTE RESPIRATORY DISTRESS NOTED AT THIS TIME. WILL CONTINUE TO MONITOR.
--- NOTE | 2019-08-21 19:19 | NUR ---
REPORT GIVEN TO TAX ACCOUNTANT RN FOR CONTINUITY OF CARE. PT IS IN STABLE CONDITION.
--- NOTE | 2019-08-21 19:20 | NUR ---
RECEIVED BEDSIDE REPORT FROM DAY SHIFT NURSE BACILIO RN, PT STABLE, NO DISTRESS NOTED, PT ON 5LPM O2 VIA OXYMIZER, NO SOB NOTED, PT ABLE TO MAKE NEEDS KNOWN, DELGADO CATH IN PLACE, DRAINING YELLOW URINE, INITIAL ASSESSMENT DONE, ALL SAFETY PRECAUTION MET, CALL LIGHT WITHIN REACH, WILL CONTINUE TO MONITOR.
--- NOTE | 2019-08-21 19:46 | NUR ---
Theresa BOONE COMPATIBILITY VERIFIED WITH DAVIDE PHARMACIST; OK TO MIX WITH TPN LINE. Addendum: 08/21/19 at 1947 by Sudhakar Gordon RN ERROR WRONG PT
--- NOTE | 2019-08-21 20:39 | NUR ---
DUE MEDICATION ADMINISTERED, PT TOLERATED WELL, NO DISTRESS NOTED, CALL LIGHT WITHIN REACH, WILL CONTINUE TO MONITOR.
--- NOTE | 2019-08-21 22:30 | NUR ---
DR. SUNG AT BEDSIDE TALKING TO PT.
[2019-08-22] VITALS (11 sets, daily range): BP systolic 109–161; BP diastolic 54–103
--- NOTE | 2019-08-22 01:15 | NUR ---
MEDICATION PER DR ORDER ADMINISTERED, PT TOLERATED WELL,. NO DISTRESS NOTED, CALL LIGHT WITHIN REACH
[2019-08-22] MEDS ORDERED: LORazepam 2 MG/ML VIAL IM/IVP SCH (01:30)
[2019-08-22] MEDS ORDERED: diphenhydrAMINE 50 MG/ML VIAL IVP SCH (01:30)
--- NOTE | 2019-08-22 02:00 | NUR ---
PT ASLEEP, CALM AND COOPERATIVE, NO DISTRESS NOTED, CALL LIGHT WITHIN REACH, WILL CONTINUE TO MONITOR.
[2019-08-22] MEDS: methylPREDNISolone SS 40 MG/ML VIAL IVP SCH ×3 (04:35→21:00)
[2019-08-22] MEDS: PIPERACILLIN/TAZOBACTAM 3.375 GM in DEXTROSE 5% 50 ML IV SCH ×3 (04:35→21:00)
--- NOTE | 2019-08-22 04:35 | NUR ---
DUE MEDICATION GIVEN, PT TOLERATED WELL, NO DISTRESS NOTED, CALL LIGHT WITHIN REACH. WILL CONTINUE TO MONITOR.
[2019-08-22] MEDS: LEVOTHYROXINE 0.05 MG TAB PO SCH (05:42)
--- NOTE | 2019-08-22 05:54 | NUR ---
MOTHER AT BEDSIDE
[2019-08-22 06:15] LABS: BASOPHILS % (AUTO) 0.2 % (0.0-2.0); HEMOGLOBIN 10.6 g/dL (12.0-18.0); LYMPHOCYTES # (AUTO) 1.7 K/uL (2.0-11.5); LYMPHOCYTES % (AUTO) 15.7 % (20.5-51.1); MEAN CORPUSCULAR HEMOGLOBIN 32 pg (27-31); MEAN CORPUSCULAR HGB CONC 33 g/dL (33-37); MEAN CORPUSCULAR VOLUME 95.5 fL (80-94); MONOCYTES # (AUTO) 0.6 K/uL (0.8-1.0); MONOCYTES % (AUTO) 5.6 % (1.7-9.3); NEUTROPHILS # (AUTO) 8.5 K/uL (1.8-7.7); NEUTROPHILS % (AUTO) 78.5 % (42.2-75.2); PLATELET COUNT (AUTO) 270 K/uL (140-450); RED BLOOD CELL COUNT(AUTO) 3.35 MIL/uL (4.20-6.10); RED CELL DISTRIBUTION WIDTH 13.3 % (11.6-13.7); WHITE BLOOD COUNT (AUTO) 10.9 K/uL (4.8-10.8)
[2019-08-22 06:19] LABS: PHOSPHORUS 3.2 mg/dL (2.5-4.9)
[2019-08-22 06:24] LABS: ANION GAP 14.6 (8-16); CARBON DIOXIDE 26.6 mmol/L (21-32); CREATININE 0.6 mg/dL (0.7-1.3); POTASSIUM 4.2 mmol/L (3.5-5.1)
[2019-08-22] MEDS: BLOOD GLUCOSE MONITORING 1 DEV DEV FS SCH ×4 (07:13→21:01)
[2019-08-22] MEDS: ALBUTEROL SULFATE/IPRATROPIU 3 ML SOL IH SCH ×3 (07:25→19:20)
[2019-08-22] MEDS: DEXT 5% /NACL 0.9% 1,000 ML IV SCH (07:25)
--- NOTE | 2019-08-22 07:40 | NUR ---
Received pt from pm shift RN. pt awake, alert. able to make needs known. BEDSIDE MONITOR SHOWS SB 50S. on RA.o2 sats 98%. no s/s of respiratory distress noted. LUNG SOUND CLEAR. PT has IV to right IJ TLC . ABD SOFT. PT ABLE TO MOVE ALL THE EXTREMITIES. PT DENIES ANY DIZZINESS OR CHEST PAIN. CALL LIGHT IN REACH. WILL CONTINUE TO MONITOR. Addendum: 08/22/19 at 1610 by Sally Argueta RN PT WAS ON O2 NC 3L/MIN INSTEAD OF RA.
[2019-08-22] MEDS: FLUoxetine 20 MG CAP PO SCH (08:17)
[2019-08-22] MEDS: LACTOBACILLUS RHAMNOSUS GG 1 EACH CAP GT SCH (08:17)
[2019-08-22] MEDS: CALCIUM CARB/VIT-D 500 MG/200 IU 1 TAB NG SCH (08:17)
[2019-08-22] MEDS: PANTOPRAZOLE 40 MG INJ VIAL IVP SCH ×2 (08:18→21:00)
[2019-08-22] MEDS: OSELTAMIVIR PHOSPHATE 75 MG CAP PO SCH ×2 (08:18→21:02)
--- NOTE | 2019-08-22 08:20 | NUR ---
DR. KIRAN IN TO CHECK PT. DR. KIRAN HAD CONVERSATION WITH PT. PER DR. KIRAN. D/C LVF. CARRIED OUT.
--- NOTE | 2019-08-22 13:26 | NUR ---
ASSISTED PT TO BATHROOM, PT WALKED STEADY. PT HAD BM. PT'S MOM AT BEDSIDE.
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
--- NOTE | 2019-08-22 14:30 | NUR ---
DR. STARKS AT BEDSIDE TO ASSESS PT. DR. STARKS FOUND PT HAS ONE UNKNOWN BANDAGE ON PT'S RIGHT FOREARM. I ASKED PT HOW DID THIS COME FROM. PT ANSWERED " I DO NOT KNOW". Addendum: 08/22/19 at 1608 by Sally Argueta RN REMOVED BANDAGE , IT WAS OLD INJECTION SITE.
[2019-08-22] MEDS ORDERED: methylPREDNISolone SS 40 MG/ML VIAL IVP SCH (15:00)
--- NOTE | 2019-08-22 15:00 | NUR ---
PT'S MOM CAME BACK. ASKED ME WHY HIS SON'S FACE WAS RED. I TOLD PT'S MOM IT HAPPED AROUND 1400 WHEN I WALKED IN PT'S ROOM . PT'S FACE WAS RED WHEN HE TALKED TO A JED WHOSE NAME IS CHINA OR AOV. PT'S MOM SAID THE REDNESS HAPPENED TWO DAYS AGO.
--- NOTE | 2019-08-22 15:59 | NUR ---
* ST NOTE * Pt seen at bedside w/mother and nsg Nicole present. Pt consenting to tx w/mother present. Pt alert, cooperative and engaged throughout session, reporting c/o pain at this time. Nsg to provide pt w/pain medication. Bedside dysphagia and oral mechanism exams completed. See evaluation report for further details. Pt tolerating 6/6 alternating PO trials of regular solid saltine crackers as well as 5/5 alternating PO trials of thin liquid apple juice via a straw, all w/o s/s of aspiration or choking. Pt and caregiver/mother education completed re: aspiration precautions and safe swallow compensatory strategies pt and caregivers could utilize to aid pt w/swallow function, w/pt and mother demonstrating follow through as trained by clinician at this time. Although pt tolerating regular solids at this time, pt presenting with decreased safety awareness and attention at this time. It is thus recommended pt's PO diet consistency be modified to mechanical soft textures w/thin liquids for all meals, w/aspiration precautions in place, w/pt, mother and nsg Nicole agreeable. No further ST follow up recommended at this time. Pt, caregiver/mother and caregiver/Nsg Nicole education completed re: results of evaluation; benefits of abiding by aspiration precautions and recommended PO diet consistency; and prognosis for improvement; with pt, caregiver/Mother and caregiver/Nsg Nicole verbalizing understanding and agreement w/clinician's recommendations. Recommend: - PO DIET CONSISTENCY OF MECHANICAL SOFT-CHOPPED TEXTURES W/THIN LIQUIDS for all meals - WHOLE PILL MEDICATION ADMINISTRATION OR CRUSHED IN PUREE OR MECH SOFT TEXTURES - MAINTAIN STRICT ASPIRATION PRECAUTIONS DURING PT'S PO INTAKE - Pt may need assistance w/feeding - SIT PT UP AT 80-90 DEGREE ANGLE DURING PO INTAKE; FEED PT SLOWLY; ALTERNATE BTWN SOLIDS & LIQUIDS; AND PROVIDE SMALL BITES/SIPS No further ST follow up recommended at this time. NOMS Level 3 Time In/Out 15:00 - 15:30
--- NOTE | 2019-08-22 18:00 | NUR ---
pt heard ambulance siren sound, then pt had panic attack. pt screaming " crime prevention police officer is coming to put me in [facility]" comforted pt. pt calms down. notified dr. Cam after transferring pt at 1839.
--- NOTE | 2019-08-22 18:05 | NUR ---
PT ARRIVED ON THE UNIT FROM ICU. PT AMBULATING. PT MOM AT BEDSIDE. PT APPEARS STABLE AND IN NO APPARENT DISTRESS. ALL SAFETY MEASURES ARE IN PLACE WILL CONTINUE TO MONITOR.
--- NOTE | 2019-08-22 18:25 | NUR ---
transferred pt to tele 122b. pt ambulate from hallway to bed. pt awake, alert. no sob. mother with pt. pt vitals stable.
--- NOTE | 2019-08-22 19:25 | NUR ---
ENDORSED PT TO PM RN PT APPEARS STABLE AND IN NO APPARENT DISTRESS. ALL SAFETY MEASURES ARE IN PLACE.
--- NOTE | 2019-08-22 19:26 | NUR ---
RECEIVED BEDSIDE REPORT FROM DAY SHIFT NURSE. PT STABLE, NO DISTRESS NOTED, NO SOB NOTED WITH 2LPM O2 VIA NC, PT ABLE TO MAKE NEEDS KNOWN, RIGHT IJ NOTED, PATENT, INTACT AND ASYMPTOMATIC. INITIAL ASSESSMENT DONE, SKIN INTACT, WARM AND DRY TO TOUCH. ALL SAFETY PRECAUTION MET, BED IN LOW POSITION, CALL LIGHT WITHIN REACH, WILL CONTINUE TO MONITOR.
--- NOTE | 2019-08-22 19:42 | NUR ---
PT REFUSED BREATHING TX. PT IS DELUSIONAL AND SAYS THAT HE IS SEEING THINGS. PT IS SAT 97% ON 2L. B/S WERE CLEAR. WULL CONT. TO MONITOR
--- NOTE | 2019-08-22 21:08 | NUR ---
GIVEN ZOSYN, PROTONIX, SOLU-MEDROL, TAMIFLU, AND HEPARIN MD ORDERED. PT TOLERATED WELL.
--- NOTE | 2019-08-22 22:07 | NUR ---
PT AGITATING, CRYING, AND SCREAMING. REPORTED TO DR. POLK AND RECEIVED ATIVAN ORDER.
[2019-08-22] MEDS ORDERED: LORazepam 2 MG/ML VIAL IVP SCH (22:15)
--- NOTE | 2019-08-22 22:30 | NUR ---
PT CALM DOWN. RN DID NOT ADMINISTER ATIVAN. REPORTED TO RESIDENT AND ASKED TO CHANGE ORDER TO ATIVAN PRN ONCE.
[2019-08-22] MEDS ORDERED: LORazepam 2 MG/ML VIAL IVP PRN (22:55)
[2019-08-23] VITALS: BP 125/74
--- NOTE | 2019-08-23 | NUR ---
VS CHECKED, WITHIN PT'S BASELINE. WILL CONTINUE TO MONITOR.
--- NOTE | 2019-08-23 02:05 | NUR ---
PT SLEEPING IN BED. NO ACUTE DISTRESS NOTED. BED IN LOW POSITION. CALL LIGHT WITHIN REACH.
--- NOTE | 2019-08-23 03:58 | NUR ---
VS CHECKED, WITHIN PT'S BASELINE. WILL CONTINUE TO MONITOR.
[2019-08-23 04:00] VITALS: BP 122/79
[2019-08-23] MEDS: DEXT 5% /NACL 0.9% 1,000 ML IV SCH (04:30)
--- NOTE | 2019-08-23 04:30 | NUR ---
GIVEN SOLU-MEDROL AND ZOSYN MD ORDERED. PT TOLERATED WELL.
[2019-08-23] MEDS: PIPERACILLIN/TAZOBACTAM 3.375 GM in DEXTROSE 5% 50 ML IV SCH (04:31)
[2019-08-23] MEDS: methylPREDNISolone SS 40 MG/ML VIAL IVP SCH (04:31)
[2019-08-24 05:11] LABS: AMPHETAMINES Negative (Cutoff=500)
[2019-08-24] MEDS: BLOOD GLUCOSE MONITORING 1 DEV DEV FS SCH ×2 (05:52→11:30)
[2019-08-24] MEDS: ALBUTEROL SULFATE/IPRATROPIU 3 ML SOL IH SCH ×3 (07:28→19:00)
[2019-08-24] MEDS: methylPREDNISolone SS 40 MG/ML VIAL IVP SCH ×2 (13:00→21:00)
[2019-08-24] MEDS: PIPERACILLIN/TAZOBACTAM 3.375 GM in DEXTROSE 5% 50 ML IV SCH ×2 (13:00→21:00)
[2019-08-24] MEDS ORDERED: diphenhydrAMINE 50 MG CAP PO ONE (17:12)
[2019-08-24] MEDS ORDERED: LORazepam 2 MG/ML VIAL ONE (17:13)
[2019-08-24] MEDS: DEXT 5% /NACL 0.9% 1,000 ML IV SCH (19:25)
--- NOTE | 2019-08-24 19:25 | NUR ---
RECEIVED BEDSIDE REPORT FROM DAY SHIFT NURSE. PT SLEEPING IN BED COMFORTABLY. FAMILY AT BEDSIDE. NO SOB NOTED WITH ROOM AIR, RIGHT IJ NOTED, PATENT, INTACT AND ASYMPTOMATIC EXCEPT BLUE COLOR LUMEN. INITIAL ASSESSMENT DONE, SKIN INTACT, WARM AND DRY TO TOUCH. ALL SAFETY PRECAUTION MET, BED IN LOW POSITION, CALL LIGHT WITHIN REACH, WILL CONTINUE TO MONITOR.
[2019-08-24 20:11] LABS: ANION GAP 12.4 (8-16); CARBON DIOXIDE 27.2 mmol/L (21-32); CREATININE 0.7 mg/dL (0.7-1.3); MAGNESIUM 2.2 mg/dL (1.8-2.4); PHOSPHORUS 3.4 mg/dL (2.5-4.9); POTASSIUM 3.6 mmol/L (3.5-5.1)
--- NOTE | 2019-08-24 20:20 | NUR ---
PT EATING LATE DINNER. FEED PT. 90% FINISHED. Addendum: 08/25/19 at 0215 by Angelita Ruiz RN WRONG TIME
--- NOTE | 2019-08-24 20:30 | NUR ---
GIVEN ZOSYN, PROTONIX, SOLU MEDROL AND HEPARIN MD ORDERED. PT TOLERATED WELL.
[2019-08-24] MEDS: PANTOPRAZOLE 40 MG INJ VIAL IVP SCH (21:00)
--- NOTE | 2019-08-24 22:20 | NUR ---
PT EATING LATE DINNER. FEED PT. 90% FINISHED.
[2019-08-25] VITALS: BP 117/70
--- NOTE | 2019-08-25 00:05 | NUR ---
VS CHECKED, WITHIN PT'S BASELINE. WILL CONTINUE TO MONITOR.
--- NOTE | 2019-08-25 02:15 | NUR ---
PT SLEEPING IN BED. NO ACUTE DISTRESS NOTED.
[2019-08-25] MEDS: methylPREDNISolone SS 40 MG/ML VIAL IVP SCH ×3 (04:56→14:07)
[2019-08-25] MEDS: MELATONIN 3 MG TAB PO PRN ×2 (04:56→23:14)
--- NOTE | 2019-08-25 04:56 | NUR ---
GIVEN ZOSYN AND SOLU-MEDROL. PT KEPT ASKING SLEEPING PILL. REPORTED TO GIVEN MELATONIN MD ORDERED. PT TOLERATED WELL.
[2019-08-25] MEDS: PIPERACILLIN/TAZOBACTAM 3.375 GM in DEXTROSE 5% 50 ML IV SCH ×2 (04:57→05:00)
[2019-08-25] MEDS: INSULIN LISPRO SLIDING SCALE 100 UNITS/ML VIAL SUBQ PRN (05:55)
--- NOTE | 2019-08-25 05:55 | NUR ---
BS CHECKED, 161. ADMINISTERED INSULIN SLIDING SCALE. PT TOLERATED WELL.
--- NOTE | 2019-08-25 06:53 | NUR ---
PT LYING IN THE BED. NO ACUTE DISTRESS NOTED. PT IN STABLE CONDITION.
[2019-08-25] MEDS: ALBUTEROL SULFATE/IPRATROPIU 3 ML SOL IH SCH ×3 (07:00→19:41)
[2019-08-25] MEDS: BLOOD GLUCOSE MONITORING 1 DEV DEV FS SCH ×4 (07:30→21:39)
[2019-08-25 08:00] VITALS: BP 126/80
[2019-08-25 08:46] LABS: BARBITURATE, URINE NEG. ng/ml (NEG <=200); BENZODIAZEPINE, URINE POS. ng/mL (NEG <=200); CANNABINOID, URINE NEG. ng/mL (NEG <=50); COCAINE, URINE NEG. ng/mL (NEG <=300); OPIATE, URINE NEG. ng/mL (NEG <=2000); PHENCYCLIDINE SCREEN,URINE NEG. ng/mL (NEG <=25)
[2019-08-25 10:27] LABS: BASOPHILS % (AUTO) 0.2 % (0.0-2.0); HEMATOCRIT 40.7 % (36-52); HEMOGLOBIN 13.7 g/dL (12.0-18.0); LYMPHOCYTES # (AUTO) 1.4 K/uL (2.0-11.5); LYMPHOCYTES % (AUTO) 12.4 % (20.5-51.1); MEAN CORPUSCULAR HEMOGLOBIN 32 pg (27-31); MEAN CORPUSCULAR HGB CONC 34 g/dL (33-37); MEAN CORPUSCULAR VOLUME 94.9 fL (80-94); MONOCYTES # (AUTO) 0.5 K/uL (0.8-1.0); MONOCYTES % (AUTO) 4.6 % (1.7-9.3); NEUTROPHILS # (AUTO) 9.1 K/uL (1.8-7.7); NEUTROPHILS % (AUTO) 82.8 % (42.2-75.2); PLATELET COUNT (AUTO) 404 K/uL (140-450); RED BLOOD CELL COUNT(AUTO) 4.29 MIL/uL (4.20-6.10); RED CELL DISTRIBUTION WIDTH 13.3 % (11.6-13.7)
[2019-08-25 10:39] LABS: BASOPHILS % (AUTO) 0.1 % (0.0-2.0); HEMATOCRIT 37.8 % (36-52); HEMOGLOBIN 12.5 g/dL (12.0-18.0); LYMPHOCYTES # (AUTO) 1.8 K/uL (2.0-11.5); LYMPHOCYTES % (AUTO) 17.1 % (20.5-51.1); MEAN CORPUSCULAR HEMOGLOBIN 31 pg (27-31); MEAN CORPUSCULAR HGB CONC 33 g/dL (33-37); MEAN CORPUSCULAR VOLUME 94.8 fL (80-94); MONOCYTES # (AUTO) 0.8 K/uL (0.8-1.0); MONOCYTES % (AUTO) 7.4 % (1.7-9.3); NEUTROPHILS % (AUTO) 75.4 % (42.2-75.2); PLATELET COUNT (AUTO) 343 K/uL (140-450); RED BLOOD CELL COUNT(AUTO) 3.99 MIL/uL (4.20-6.10); RED CELL DISTRIBUTION WIDTH 13.3 % (11.6-13.7); WHITE BLOOD COUNT (AUTO) 10.6 K/uL (4.8-10.8)
[2019-08-25 10:57] LABS: ANION GAP 12.7 (8-16); CARBON DIOXIDE 24.4 mmol/L (21-32); CREATININE 0.7 mg/dL (0.7-1.3); POTASSIUM 4.1 mmol/L (3.5-5.1)
[2019-08-25 11:03] LABS: MAGNESIUM 2.4 mg/dL (1.8-2.4); PHOSPHORUS 3.2 mg/dL (2.5-4.9)
[2019-08-25] MEDS: PANTOPRAZOLE 40 MG INJ VIAL IVP SCH ×2 (11:15→21:35)
[2019-08-25] MEDS: LACTOBACILLUS RHAMNOSUS GG 1 EACH CAP GT SCH (11:15)
[2019-08-25] MEDS: CALCIUM CARB/VIT-D 500 MG/200 IU 1 TAB NG SCH (11:16)
[2019-08-25] MEDS: FLUoxetine 20 MG CAP PO SCH (11:16)
[2019-08-25] MEDS: LEVOFLOXACIN 500 MG/D5W PREMIX 100 ML IV SCH (12:39)
[2019-08-25] MEDS ORDERED: ZIPRASIDONE MESYLATE 20 MG/ML VIAL IM PRN (13:45)
[2019-08-25] MEDS: DEXT 5% /NACL 0.9% 1,000 ML IV SCH (15:25)
[2019-08-25 16:00] VITALS: BP 153/90
[2019-08-25] MEDS ORDERED: ZIPRASIDONE 40 MG CAP PO SCH (17:00)
[2019-08-25 18:51] LABS: BARBITURATE, URINE NEGATIVE ng/ml (NEG <=200); BENZODIAZEPINE, URINE NEGATIVE ng/mL (NEG <=200); CANNABINOID, URINE NEGATIVE ng/mL (NEG <=50); COCAINE, URINE NEGATIVE ng/mL (NEG <=300); OPIATE, URINE NEGATIVE ng/mL (NEG <=2000); PHENCYCLIDINE SCREEN,URINE NEGATIVE ng/mL (NEG <=25)
--- NOTE | 2019-08-25 19:22 | NUR ---
REPORT RECEIVED FROM AM NURSE AT BEDSIDE. PT IN STABLE CONDITION. AAOX4. INTRODUCED SELF TO PT AND FAMILY. NO COMPLAINTS OF PAIN. NO SOB. AFEBRILE. PT IS AMBULATORY. IV SITE R IJ PICC TRIPLE LUMEN WITH ONLY THE BROWN CAP PATENT AND INTACT. SKIN WARM, DRY, AND INTACT WITH NO OPEN WOUNDS. BED LOCKED IN LOW POSITION. CALL [place] WITHIN REACH. SAFETY PRECAUTION IN PLACE. ALL NEEDS MET AT THIS TIME.
--- NOTE | 2019-08-25 19:49 | NUR ---
RECEIVED PT ON ROOM AIR WITH SP02 96%. CLEAR BREATH SOUNDS. PT IN NO RESPIRATORY DISTRESS. TX GIVEN ORDERED WITH NO ADVERSE REACTION. WILL CONTINUE TO MONITOR PT
--- NOTE | 2019-08-25 21:35 | NUR ---
HEPARIN GIVEN SUBQ. PROTONIX GIVEN IVP. BS 138. NO INSULIN COVERAGE NEEDED.
--- NOTE | 2019-08-25 23:14 | NUR ---
MELATONIN GIVEN FOR SLEEPLESSNESS. PT TOLERATED WELL.
[2019-08-26] VITALS: BP 123/88
--- NOTE | 2019-08-26 01:15 | NUR ---
PT SLEEPING COMFORTABLY BUT AROUSABLE. NO S/S OF DISTRESS NOTED. WILL CONTINUE TO MONITOR.
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
--- NOTE | 2019-08-26 04:10 | NUR ---
PT LAYING IN BED. NO S/S OF DISTRESS NOTED. WILL CONTINUE TO MONITOR.
[2019-08-26] MEDS: BLOOD GLUCOSE MONITORING 1 DEV DEV FS SCH (06:12)
--- NOTE | 2019-08-26 06:12 | NUR ---
BS 104. NO INSULIN COVERAGE NEEDED.
[2019-08-26] MEDS: ALBUTEROL SULFATE/IPRATROPIU 3 ML SOL IH SCH ×2 (06:46→13:00)
--- NOTE | 2019-08-26 06:55 | NUR ---
PT SLEEPING COMFORTABLY BUT AROUSABLE. PT IN STABLE CONDITION.
--- NOTE | 2019-08-26 07:29 | NUR ---
Shift report received from crab butcher nurse. Pt is in bed in stable condition. Call light in reach.
[2019-08-26 08:00] VITALS: BP 125/75
[2019-08-26] MEDS ORDERED: CITALOPRAM 20 MG TAB PO SCH (09:00)
--- NOTE | 2019-08-26 09:00 | NUR ---
Pt refused to take citalopram medication at 0900. Mother also did not want to give as she want the doctor to evaluate patient.
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
[2019-08-26 09:43] LABS: BASOPHILS % (AUTO) 0.2 % (0.0-2.0); EOSINOPHILS # (AUTO) 0.1 K/uL (0-0.4); EOSINOPHILS % (AUTO) 1.1 % (0.0-4.0); HEMATOCRIT 41.9 % (36-52); LYMPHOCYTES # (AUTO) 4.5 K/uL (2.0-11.5); LYMPHOCYTES % (AUTO) 39.5 % (20.5-51.1); MEAN CORPUSCULAR HEMOGLOBIN 32 pg (27-31); MEAN CORPUSCULAR HGB CONC 34 g/dL (33-37); MEAN CORPUSCULAR VOLUME 94.9 fL (80-94); MONOCYTES # (AUTO) 0.9 K/uL (0.8-1.0); NEUTROPHILS # (AUTO) 5.8 K/uL (1.8-7.7); NEUTROPHILS % (AUTO) 51.2 % (42.2-75.2); PLATELET COUNT (AUTO) 459 K/uL (140-450); RED BLOOD CELL COUNT(AUTO) 4.42 MIL/uL (4.20-6.10); RED CELL DISTRIBUTION WIDTH 13.4 % (11.6-13.7); WHITE BLOOD COUNT (AUTO) 11.4 K/uL (4.8-10.8)
[2019-08-26] MEDS: PANTOPRAZOLE 40 MG INJ VIAL IVP SCH (09:44)
[2019-08-26] MEDS: CALCIUM CARB/VIT-D 500 MG/200 IU 1 TAB NG SCH (09:45)
[2019-08-26] MEDS: LACTOBACILLUS RHAMNOSUS GG 1 EACH CAP GT SCH (09:45)
[2019-08-26 10:05] LABS: MAGNESIUM 2.3 mg/dL (1.8-2.4); PHOSPHORUS 2.8 mg/dL (2.5-4.9)
[2019-08-26 10:23] LABS: ANION GAP 13.9 (8-16); CARBON DIOXIDE 25.4 mmol/L (21-32); CREATININE 0.7 mg/dL (0.7-1.3); POTASSIUM 3.3 mmol/L (3.5-5.1)
[2019-08-26] MEDS: LEVOFLOXACIN 500 MG/D5W PREMIX 100 ML IV SCH (10:29)
--- NOTE | 2019-08-26 11:30 | NUR ---
As per warehouse order puller pt was taken to ER via didier. Report given to ER nurse
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
[2019-08-26] MEDS ORDERED: CITA-71 PO (15:43)
[2019-08-28 19:57] LABS: HEMATOCRIT 41.2 % (36-52); HEMOGLOBIN 13.8 g/dL (12.0-18.0); MEAN CORPUSCULAR HEMOGLOBIN 32 pg (27-31); MEAN CORPUSCULAR HGB CONC 34 g/dL (33-37); MEAN CORPUSCULAR VOLUME 94.1 fL (80-94); NEUTROPHILS % (AUTO) 75.2 % (42.2-75.2); PLATELET COUNT (AUTO) 395 K/uL (140-450); RED BLOOD CELL COUNT(AUTO) 4.38 MIL/uL (4.20-6.10); RED CELL DISTRIBUTION WIDTH 13.1 % (11.6-13.7)
[2019-08-28 19:58] LABS: BASOPHILS % (AUTO) 0.1 % (0.0-2.0); LYMPHOCYTES # (AUTO) 2.6 K/uL (2.0-11.5); LYMPHOCYTES % (AUTO) 18.6 % (20.5-51.1); MONOCYTES # (AUTO) 0.8 K/uL (0.8-1.0); MONOCYTES % (AUTO) 6.1 % (1.7-9.3); NEUTROPHILS # (AUTO) 10.5 K/uL (1.8-7.7)
== END 2019-08-26 11:30 | disposition left against medical advice (07) | DRG 871 ==
LOC: EDBD 00:18 → MED 00:18 → MIC 02:53 → MTU 08-22 18:10
PROVIDERS: ADMIT General Practice; ATTEND General Practice
PROC: 5A1945Z Respiratory Ventilation, 24-96 Consecutive Hours (ICD-10-PCS; principal; 2019-08-18)
PROC: 0BH17EZ Insertion of Endotracheal Airway into Trachea, Via Natural or Artificial Opening (ICD-10-PCS; 2019-08-18)
PROC: 02HV33Z Insertion of Infusion Device into Superior Vena Cava, Percutaneous Approach (ICD-10-PCS; 2019-08-18)
PROC: B548ZZA Ultrasonography of Superior Vena Cava, Guidance (ICD-10-PCS; 2019-08-18)
PROC: 5A12012 Performance of Cardiac Output, Single, Manual (ICD-10-PCS; 2019-08-18)
PROC: 0D9670Z Drainage of Stomach with Drainage Device, Via Natural or Artificial Opening (ICD-10-PCS; 2019-08-26)
DX: A41.9 Sepsis, unspecified organism (principal); J69.0 Pneumonitis due to inhalation of food and vomit; J96.01 Acute respiratory failure with hypoxia; G92 Toxic encephalopathy; J96.21 Acute and chronic respiratory failure with hypoxia; I46.9 Cardiac arrest, cause unspecified; E43 Unspecified severe protein-calorie malnutrition; T43.621A Poisoning by amphetamines, accidental (unintentional), initial encounter; T50.905A Adverse effect of unspecified drugs, medicaments and biological substances, initial encounter; R65.20 Severe sepsis without septic shock; E03.9 Hypothyroidism, unspecified; E83.42 Hypomagnesemia; F15.90 Other stimulant use, unspecified, uncomplicated; F20.9 Schizophrenia, unspecified; J10.1 Influenza due to other identified influenza virus with other respiratory manifestations; E05.90 Thyrotoxicosis, unspecified without thyrotoxic crisis or storm; R31.9 Hematuria, unspecified; F32.9 Major depressive disorder, single episode, unspecified; Y92.89 Other specified places as the place of occurrence of the external cause
CPT/HCPCS: 31500; 36415; 36600; 43753; 51702; 70450; 71045; 76705; 80048; 80053; 80305; 80325; 81001; 82009; 82550; 82553; 82803; 82948; 83036; 83605; 83690; 83735; 84100; 84439; 84443; 84484; 85025; 85610; 85730; 87040; 87070; 87081; 87086; 87205; 87804; 89220; 92610; 92950; 93005; 94002; 94003; 94640; 96365; 96375; 99291; 99292; C9113; G0480; G0482; J0330; J0780; J1200; J1642; J1644; J1815; J1956; J2060; J2250; J2405; J2543; J2704; J2920; J3010; J3370; J3475; J3490; J7030; J7042; J7060; J7620; Q0092; Q0163

== ENCOUNTER 2019-08-26 12:41 | Inpatient (IN) | payer BC, MEDICAID ==
[~2019-08-26] VITALS: Ht 170.2 cm; Wt 63.5 kg
[2019-08-26 12:41] VITALS: BP 120/77
[~2019-08-26 12:41] MED LIST: TAP5 PO
--- NOTE | 2019-08-26 12:41 | NUR ---
34/M brought in from Med Surg floor per President & Ceo Lizz after eloping from facility. Pt was admitted in 122-B and eloped out of hospital. Pt was brought back nursing staff and security and placed back into room 122-B. Per sales clerk supervisor, pt needs to be brought to ER for re-evaluation. Pt was also accompanied by patient's mother and father who arrived very agitated and verbally aggressive towards the nursing staff. Lizz powerhouse electrician accompanied patient and called security to bedside to standby. Patient is staring off to the side, eyes wide, intermittent giggling and crying.
--- NOTE | 2019-08-26 12:45 | NUR ---
34 y/o male presents to ER for ALOC. Pt non-verbal ; GCS 11. Spontenous to eye opening, purposeful motor movement, incrompehensive pt not able to state name, date of , place. Pupils reactive to light, 5mm brisk. Central line noted on assessment, triple lumen, to right subclavian area. Respirations even and unlabored, oxygen saturation at 97% on RA. Heart rate currently at 97. VSS stable. Head of bed elevated, bed in lowest position. Side rails x2. ER MD made aware of pt status.
--- NOTE | 2019-08-26 13:00 | NUR ---
[place] PD was called to our facility. Mother is at the bedside, approaching nurses station and confronting the nursing staff, adoption social worker Heather and chief transfer and pumphouse operator sheldon. Mother is on the phone, talking with insurance company stating she wants to transfer the patient to [facility]. I advised the patient's mother that she needed to be calm and not yell at the staff. Pt's mother is yelling stating "You guys aren't helping him! He needs to go to [facility] or somewhere where they can help him." Patient is altered at this time. Pt has not been answering questions. Pt giggling and crying on and off. Pt staring off, eyes appear wide. Mother sitting at the bedside on her phone making multiple phone calls.
[2019-08-26] MEDS ORDERED: NACL 0.9% 500 ML IV SCH (13:08)
--- NOTE | 2019-08-26 13:30 | NUR ---
Pt's parents were escorted off the property by [place]. I advised mother that we were going to admit the patient back into the hospital and that we would call her and let her know when she would be able to come and visit patient. Mother verbalized understanding.
--- NOTE | 2019-08-26 13:51 | NUR ---
18 swedish flores catheter inserted successfully. Dark yellow urine 300 mL output.
--- NOTE | 2019-08-26 13:55 | NUR ---
Pt restless, uncooperative, attempting to get out of bed, thrasing, kicking legs, throwing up arms. Pt redirected several times unsuccessfully. Pt placed in two upper extremity wrist restraints for self destructive behavior. Assess CMS before and after placement of restraints, capillery refill within normal limits. Dr. Aceves notified and aware. Addendum: 08/26/19 at 1512 by RYLEE HARD NYLON/VELCRO WRIST RESTRAINTS
[2019-08-26] MEDS ORDERED: LORazepam 2 MG/ML VIAL IVP ONE (14:05)
--- NOTE | 2019-08-26 14:20 | NUR ---
LAB AT BEDSIDE
--- NOTE | 2019-08-26 14:25 | NUR ---
Influenza swab collected and given to phleb
[2019-08-26 14:36] LABS: BASOPHILS % (AUTO) 0.1 % (0.0-2.0); EOSINOPHILS # (AUTO) 0.1 K/uL (0-0.4); EOSINOPHILS % (AUTO) 0.7 % (0.0-4.0); HEMATOCRIT 42.6 % (36-52); HEMOGLOBIN 14.4 g/dL (12.0-18.0); LYMPHOCYTES # (AUTO) 3.5 K/uL (2.0-11.5); LYMPHOCYTES % (AUTO) 33.3 % (20.5-51.1); MEAN CORPUSCULAR HEMOGLOBIN 32 pg (27-31); MEAN CORPUSCULAR HGB CONC 34 g/dL (33-37); MEAN CORPUSCULAR VOLUME 94.6 fL (80-94); MONOCYTES # (AUTO) 0.7 K/uL (0.8-1.0); MONOCYTES % (AUTO) 6.6 % (1.7-9.3); NEUTROPHILS # (AUTO) 6.2 K/uL (1.8-7.7); NEUTROPHILS % (AUTO) 59.3 % (42.2-75.2); PLATELET COUNT (AUTO) 484 K/uL (140-450); RED CELL DISTRIBUTION WIDTH 13.3 % (11.6-13.7); WHITE BLOOD COUNT (AUTO) 10.4 K/uL (4.8-10.8)
--- NOTE | 2019-08-26 14:38 | NUR ---
IV INSERTED AND DOCUMENTED ON CHART; MEDICATION GIVEN ATIVAN IVP ; 500ML BOLUS
--- NOTE | 2019-08-26 14:39 | NUR ---
WRIST RESTRAINTS CHANGED TO SOFT RESTRAINTS, CMS INTACT.
[2019-08-26 14:41] LABS: APPEARANCE,URINE CLEAR (CLEAR); BILIRUBIN,URINE NEGATIVE (NEGATIVE); BLOOD, URINE TRACE-L (NEGATIVE); COLOR,URINE YELLOW (YELLOW); LEUKOCYTE ESTERASE ,URINE NEGATIVE (NEGATIVE); NITRITE, URINE NEGATIVE (NEGATIVE); UGLUCOSE NEGATIVE (NEGATIVE)
[2019-08-26 14:48] LABS: ANION GAP 17.8 (8-16); CARBON DIOXIDE 22.4 mmol/L (21-32); CREATININE 0.8 mg/dL (0.7-1.3); POTASSIUM 3.2 mmol/L (3.5-5.1)
[2019-08-26 14:48] LABS: BARBITURATE, URINE NEG. ng/ml (NEG <=200); BENZODIAZEPINE, URINE NEG. ng/mL (NEG <=200); CANNABINOID, URINE NEG. ng/mL (NEG <=50); COCAINE, URINE NEG. ng/mL (NEG <=300); OPIATE, URINE NEG. ng/mL (NEG <=2000); PHENCYCLIDINE SCREEN,URINE NEG. ng/mL (NEG <=25)
[2019-08-26 14:54] LABS: ALBUMIN 3.4 g/dL (3.4-5.0); TOTAL BILIRUBIN 1.1 mg/dL (0.0-1.0)
--- NOTE | 2019-08-26 14:54 | NUR ---
CT AT BEDSIDE TAKING PATIENT VIA GURNEY
--- NOTE | 2019-08-26 14:55 | NUR ---
PT YELLING AND SCREAMING "MOM!" PT THEN YELLING "AHHHHHH!" SALES ORDER PROCESSOR CONRADO AT BEDSIDE TO TAKE PATIENT FOR CT. RAJESH WILL ACCOMPANY PATIENT.
[2019-08-26 14:56] LABS: ACETONE, SERUM NEGATIVE (NEGATIVE)
--- NOTE | 2019-08-26 14:59 | NUR ---
PER DR LINTON TO HOLD THE CT SCAN DUE TO PT BEING RESTLESS AND UNCOOPERATIVE. ATIVAN HAS BEEN GIVEN ONCE AND SECOND DOSE WILL NOT BE GIVEN. PER DR LINTON PT TO BE ADMITTED AND CT CAN BE DONE IF NEEDED ONCE ADMITTED. SOFT RESTRAINTS IN PLACE, CMS INTACT.
[2019-08-26 15:00] LABS: PROTHROMBIN TIME 10.5 secs (10.8-13.4)
--- NOTE | 2019-08-26 15:00 | NUR ---
PT IS SPITTING. PT INSTRUCTED TO NOT SPT. PT CONTINUES SPITTING. PT ADVISED IF HE CONTINUES TO SPIT THAT WE WILL PLACE A SPIT MASK ON HIM. PT IS NOW QUIET AND NOT SPITTING. PT IS TALKING NOW CALLING FOR HIS MOTHER. PT ALSO STATES "I'M ALLERGIC TO ATIVAN."
[2019-08-26 15:01] LABS: RBC,URINE 0-5 /HPF (0-5); WBC,URINE 0 /HPF (0-5)
--- NOTE | 2019-08-26 15:20 | NUR ---
PT RESTIN GIN BED WITH EYES CLOSED. VSS. PT CMS CHECKED. NO SKIN BREAKDOWN. CAP REFILL <3 SEC. 1:1 SITTER AT BEDSIDE.
[2019-08-26 15:28] LABS: GAMMA GLUTAMYL TRANSFERASE 46 U/L (7-51); MAGNESIUM 2.1 mg/dL (1.8-2.4)
[2019-08-26] MEDS ORDERED: ACETAMINOPHEN 325 MG TAB PO PRN (15:35)
[2019-08-26] MEDS ORDERED: LORazepam 2 MG/ML VIAL IM/IVP PRN ×2 (15:35→22:30)
[2019-08-26] MEDS ORDERED: ONDANSETRON 4 MG/2 ML VIAL IM/IVP PRN (15:35)
[2019-08-26] MEDS ORDERED: CITA-71 PO (15:43)
--- NOTE | 2019-08-26 15:45 | NUR ---
SOFT WRIST RESTRAINTS REMOVED. CMS INTACT. CHARGE NURSE AND ERMD MADE AWARE.
--- NOTE | 2019-08-26 16:20 | NUR ---
PT AWAKE, WITH EYES OPEN, RESTING IN BED QUIETLY, VSS STABLE. WILL CONTINUE TO MONITOR.
--- NOTE | 2019-08-26 16:25 | NUR ---
Note jose in EDM - 08/26/19 at 1632 by NICOL PT ALERT AND ORIENTED X1. PT UNABLE TO ANSWER NAME, BIRTHDAY, PLACE, OR EVENT. PT RESPONDS E
--- NOTE | 2019-08-26 16:25 | NUR ---
PT ALERT AND ORIENTED X1 TO NAME. PT TURNS HEAD AND MAKES EYE CONTACT WHEN CALLING HIS NAME. WHEN ASKED IF PT HAD ALLERGIES, PT RESPONDED BY STATING "NO." PT ASKED IF HE HAS A HX OF DRUG USE, PT ANSWERED "YES, I USED TO DO HEROIN." WHEN ASKED IF PT NEEDED ANYTHING, PT STATED "LOVE AND PRAYERS." GCS 14, CONFUSED. VSS. PT RESTING IN BED QUIETLY.
--- NOTE | 2019-08-26 16:25 | NUR ---
Anne Marie garcia in ED - 08/26/19 at 1632 by [email or web address] PT RESTIN GIN BED WITH EYES CLOSED. VSS. PT CMS
[2019-08-26] MEDS: NACL 0.9% 1,000 ML IV SCH (16:40)
--- NOTE | 2019-08-26 16:50 | NUR ---
I called and spoke to Dr. Pierce to verify if he was able to evaluate the patient. Dr. Pierce states he was here this am and did briefly speak with the patient. Dr. Pierce mentioned that patient told him that he did not want his mother involved in his care. Dr. Pierce states he was not able to complete his evaluation and recommended a TelePsych evaluation.
--- NOTE | 2019-08-26 17:04 | NUR ---
SPOKE TO DR. EVANS REGARDING HEPARIN 5000 UNITS/1ML VIAL, IV AT 1548 HOURS. UNABLE TO ADMINISTER MEDICATION DUE TO MEDICATION ORDER. UNABLE TO SCAN AND IMPLEMENT MEDICATION ON [place]. PER DR. EVANS "IF YOU CANT GIVE NOW, DONT WORRY ABOUT IT" . PT HAS ORDER FOR HEPARIN 5000 UNITS/1ML VIAL AT 2100 HOURS.
[2019-08-26] MEDS ORDERED: LORazepam 2 MG/ML VIAL IVP PRN (17:05)
--- NOTE | 2019-08-26 18:25 | NUR ---
PT AWAKE WITH EYES OPEN. CALM. VSS STABLE. WILL CONTINUE TO MONITOR. PT PENDING ADMISSION. ROOM AVAILABLE AT 1900 HOURS.
--- NOTE | 2019-08-26 18:33 | NUR ---
Called patient's mother Jannet to advise her that patient was going to be admitted to the same room he was in this morning 122-A. I let her know I spoke to Dr. Pierce and that he was not able to complete his evaluation. Mother is argumentative on the phone stating that we need to transfer him. I spent 15 minutes on the phone with mother trying to explain the procedure and letting her know that we needed to evaluate the patient and figure out why he is ALOC. Mother is not responsive to what I have to say, talking over me on the phone, saying "you guys are just covering your ass." I advised her that patient had expressed to Dr. Pierce that he did not want her to make medical decisions for him. I advised her that if she wanted to make decisions she would need proper documentation. Mother is arguing stating "I already signed an advance directive. I HAVE been making decisions already. I'm his mother." I advised mother she should get any paperwork she has that would show she has legal guadianship or able to make medical decisions know. Mother became argumentative on the phone. Mother stated "Well I'll call tomorrow and take him off my insurance. He has [employer]. You can bill them." I advised mother she can do whatever she feels is necessary. She stated "I'm going to report you to the state and you're all full of shit liars" and then she hung up on me.
--- NOTE | 2019-08-26 18:37 | NUR ---
PT ABLE TO STATE NAME, BIRTHDAY, AND PLACE. WHEN ASKED IF PT HAD ANY PAIN, PT REPEATED "0-100, 0-100." GCS 14; CONFUSED. WILL CONTINUE TO MONITOR.
--- NOTE | 2019-08-26 19:00 | NUR ---
PT DELGADO BAG EMPTIED 525ML OUTPUT JAYNA IN COLOR.
--- NOTE | 2019-08-26 19:15 | NUR ---
Patient will be admitted to care of DR MILLS. Admited to TELEMETY. Will go to room 122A. Belongings list completed. Report to REPORT GIVEN TO DEHSAWN WATSON.
--- NOTE | 2019-08-26 19:15 | NUR ---
TRANSFER OF CARE , REPORT GIVEN TO WALTER HESS
[2019-08-26 19:30] VITALS: BP 114/73
--- NOTE | 2019-08-26 19:30 | NUR ---
REPORT RECEIVED FROM ED NURSE AT BEDSIDE. PT IN STABLE CONDITION. AAOX1-2. INTRODUCED SELF TO PT. BOARD UPDATED. NO COMPLAINTS OF PAIN. NO SOB. AFEBRILE. PT IS AMBULATORY. PT SPEAKS GIBBERISH AND IS CONFUSED. PT HAS A DELGADO. PT REFUSED MRSA NARES. IV SITE L AC 18G RUNNING NS@60ML/HR PATENT AND INTACT. SKIN WARM, DRY, AND INTACT WITH NO OPEN WOUNDS. BED LOCKED IN LOW POSITION. CALL [place] WITHIN REACH. SAFETY PRECAUTION IN PLACE. ALL NEEDS MET AT THIS TIME.
--- NOTE | 2019-08-26 20:00 | NUR ---
PT REFUSED HEPARIN INJECTION. PT EDUCATED ABOUT THE REASONS HE NEEDS HEPARIN. PT STILL REFUSES.
[2019-08-26 20:43] LABS: ANION GAP 8.2 (8-16); CARBON DIOXIDE 31.3 mmol/L (21-32); CREATININE 0.8 mg/dL (0.7-1.3); MAGNESIUM 2.4 mg/dL (1.8-2.4); PHOSPHORUS 4.1 mg/dL (2.5-4.9); POTASSIUM 3.5 mmol/L (3.5-5.1)
--- NOTE | 2019-08-26 22:00 | NUR ---
PT IN ROOM SCREAMING HELP AND SPEAKING GIBBERISH. PT SEVERELY CONFUSED. ATTEMPTED TO ORIENT PATIENT BUT WITH NO SUCCESS. WILL CONTINUE TO MONITOR.
[2019-08-27] VITALS: BP 118/77
--- NOTE | 2019-08-27 | NUR ---
PT AWAKE IN BED. PT SOMETIMES CALLS FOR HIS MOM AND SAYS HES SORRY. THEN WHEN ASKED IF HE WANTS HIS MOM TO COME HE SAYS NO.
[2019-08-27] MEDS ORDERED: ZOLPIDEM 5 MG TAB PO PRN (01:30)
--- NOTE | 2019-08-27 02:15 | NUR ---
ATIVAN GIVEN FOR AGITATION. PT TOLERATED WELL.
[2019-08-27] MEDS: HYDROcodone/APAP 5/325 MG 1 TAB TAB PO PRN ×2 (03:55→22:01)
--- NOTE | 2019-08-27 03:55 | NUR ---
NORCO GIVEN FOR 5/10 URINARY PAIN. PT TOLERATED WELL.
[2019-08-27 04:00] VITALS: BP 112/68
--- NOTE | 2019-08-27 05:30 | NUR ---
PT FINALLY ABLE TO SLEEP BUT AROUSABLE. NO S/S OF DISTRESS NOTED. WILL CONTINUE TO MONITOR.
--- NOTE | 2019-08-27 06:51 | NUR ---
PT SLEEPING COMFORTABLY IN BED BUT AROUSABLE. TELE MONITORING. PT IN STABLE CONDITION.
--- NOTE | 2019-08-27 07:20 | NUR ---
RECEIVED BEDSIDE REPORT FROM MACHINE STEMMER NURSE. PATIENT IS AWAKE, ALERT AND ORIENTEDX2. NO SIGNS OF DISTRESS ON RA. SKIN IS INTACT. CENTRAL LINE ON RIJ, ONLY BLUE LINE HAS BLOOD RETURN, CLEAN, DRY AND INTACT. L AC 18G INFUSING NS AT 60. CLEAN, DRY AND INTACT. TELE MONITOR IN PLACE. DELGADO IN PLACE. CONTINENT. AMBULATE W ASSIST. FALL RISK PROTOCOL IN PLACE. BED IN LOW POSITION. CALL LIGHT WITHIN REACH. WILL CONTINUE TO MONITOR
[2019-08-27 08:00] VITALS: BP 109/63
[2019-08-27] MEDS ORDERED: POTASSIUM CHLORIDE 40 MEQ, LIDOCAINE MPF 1% 25 MG in NACL 0.9% 250 ML IV ONE (08:00)
[2019-08-27] MEDS: NACL 0.9% 1,000 ML IV SCH (08:14)
--- NOTE | 2019-08-27 08:53 | NUR ---
PATIENT HAS BEEN SCREENED AND CATEGORIZED LOW NUTRITION RISK. PATIENT WILL BE SEEN WITHIN 7 DAYS OF ADMISSION. 09/02/[address]
--- NOTE | 2019-08-27 09:58 | NUR ---
ADMINISTERED MEDS. EDUCATED ON SIDE EFFECTS. PATIENT TOLERATED WELL. REMOVED CENTRAL LINE PER DRS ORDER. CENTRAL LINE TIP INTACT. PATIENT TOLERATED WELL. NO BLEEDING. WILL CONTINUE TO MONITOR. FAMILY AT BEDSIDE
--- NOTE | 2019-08-27 11:00 | NUR ---
PATIENT IN NO DISTRESS. DELGADO CATH WAS REMOVED BY STUDENT WITH ASSISTANCE BY TEACHER. NO SIGNS OF DISTRESS. CATH TIP WAS INTACT.
[2019-08-27 12:00] VITALS: BP 114/74
--- NOTE | 2019-08-27 12:23 | NUR ---
ASSISTED PATIENT TO THE RESTROOM. PATIENT WILL PULL CALL LIGHT WHEN DONE
--- NOTE | 2019-08-27 13:38 | NUR ---
PATIENT CLEANSED HIMSELF. NO SIGNS OF DISTRESS. WILL CONTINUE TO MONITOR THE PATIENT
--- NOTE | 2019-08-27 14:01 | NUR ---
Requested remote team to fax over the clinicals at [phone]. This was the number we were asked to fax the clinicals during this member's recent admission. Addendum: 08/27/19 at 1530 by Teresita Kumar CM DC PLANNIN YRS OLD MALE PT WAS ADMITTED PREVIOUSLY AND HAS ELOPED FROM HIS ROOM , PT FOUND TO BE ALTERED AND WORKED UP IN THE EMERGENCY ROOM AND WAS ADMITTED WITH A DX OF ALOC. PT HAS A HX OF SCHIZOTYPAL; , THYROTOXICOSIS/HYPERTHYROID. HAS A HX OF DRUG ABUSE . PSYCH EVAL WITH DR QUINN PENDING , CONTINUE HOME MEDS. DC PLAN PER PSYCH RECOMMENDATIONS. CM TO FOLLOW. Addendum: 08/28/19 at 0909 by Teresita Kumar CM DC PLANNING: [facility] [phone] SPOKE WITH ART AND NOTIFIED HIM PT IS ON HOLD AND NEEDS TO BE TRANSFERRED TO PSYCH FACILITY . FAXED THE 5151 HOLD , FACE SHEET , H&P, MEDICATION AND PROGRESS NOTES TO [phone] CM TO FOLLOW Addendum: 08/28/19 at 1545 by Teresita Kumar CM DC PLANNING MOTHER REFUSED THE TRANSFER TO [facility] STATED IT IS TOO FAR FOR HER TO VISIT HER SON. SHE PROVIDED ME THE INSURANCE NUMBER [phone] , BLUE CROSS/SHIELD MANAGED BY [employer]. CALLED [employer] [phone] SPOKE WITH WILEY MAGAÑA PROVIDED ALL THE CONTRACTED PSYCH FACILITY. CALLED [facility] [phone] SPOKE WITH CHAVA REQUESTED TO FAX TO [phone] FAXED. CALLED [facility] [phone] SPOKE WITH [employer] AND FAXED TO [phone] THEY DON'T HAVE MALE BED BUT WILL REVIEW THE CASE AND CALL BACK WHEN BED AVAILABLE. CALLED [facility] [phone] LEFT A MESSAGE. CALLED [facility] [phone] SPOKE WITH JOSR NO BED AT THIS TIME BUT TO FAX TO REVIEW FAXED ALL THE PAPER WORK [phone].CM TO FOLLOW Addendum: 08/28/19 at 1552 by Teresita Kumar CM DC PLANNING: CALLED [facility] [phone] SPOKE WITH ANNE MARIE MAGAÑA STATED THEY SENT THE REQUEST TO ALL THE PSYCH FACILITY INCLUDING THE [facility] NO BED AVAILABLE . PER ANNE MARIE SINCE PT IS ON HOLD HAS TOGO TO ANY FACILITY ACCEPTED PATIENT. [facility] IS CONTRACTED WITH [employer].
--- NOTE | 2019-08-27 14:56 | NUR ---
PATIENT IS REFUSING VISITORS AT THIS TIME. HOSPITAL TEAM IS AWARE. HELPED PATIENT MAKE A CALL. NO SIGNS OF DISTRESS. WILL CONTINUE TO MONITOR THE PATIENT.
[2019-08-27 16:00] VITALS: BP 114/72
--- NOTE | 2019-08-27 16:57 | NUR ---
PATIENT REQUESTING HELP TO DIAL A PHONE NUMBER. STUDENT NURSE HELPING PATIENT DIAL OUT
--- NOTE | 2019-08-27 18:41 | NUR ---
PATIENT WALKING AROUND THE ROOM. PATIENT WANTS TO GO AMA. WAITING TO TELL RESIDENTS.
--- NOTE | 2019-08-27 19:07 | NUR ---
GAVE BEDSIDE REPORT TO BUSINESS OFFICE REPRESENTATIVE NURSE. PATIENT ENDORSED IN STABLE CONDITION
[2019-08-27 20:00] VITALS: BP 114/68
[2019-08-27] MEDS ORDERED: traZODone 50 MG TAB PO SCH (21:00)
[2019-08-27] MEDS ORDERED: OLANZapine 5 MG ODT PO ONE (21:00)
--- NOTE | 2019-08-27 23:27 | NUR ---
MADE DR EVANS AWARE THAT PATIENT HAS BEEN DISCONNECTING HIS TELE MONITOR AND DROPPING THE BOX ON THE FLOOR. INFORMED DR THAT PATIENT IS REFUSING ORDERED MEDICATIONS AND IV FLUIDS WELL. NO NEW ORDERS AT THIS TIME
--- NOTE | 2019-08-27 23:39 | NUR ---
RECEIVED PT FROM NITA FOR CONTINUITY OF CARE.
[2019-08-28] VITALS: BP 98/46
--- NOTE | 2019-08-28 | NUR ---
PT SLEEPING AWKEN BRIEFLY FOR V/S,NO C/O PAIN OR RESPIRATORY DISTRESS.
[2019-08-28] MEDS: NACL 0.9% 1,000 ML IV SCH (00:54)
--- NOTE | 2019-08-28 02:00 | NUR ---
PT. SLEEPING COMFORTABLY, NO SIGN OF DISTRESS.
[2019-08-28 04:00] VITALS: BP 109/52
--- NOTE | 2019-08-28 04:00 | NUR ---
AWAKEN FOR V/S NO SIGN OF RESPIRATORY DISTRESS.
--- NOTE | 2019-08-28 06:00 | NUR ---
PT STILL SLEEPING, NO DISTRESS NOTED, NOTED PATIENT TURN FROM SIDE TO SIDE.
--- NOTE | 2019-08-28 06:52 | NUR ---
PT STILL ASLEEP, NO DISTRESS NOTED.
[2019-08-28 06:58] LABS: EOSINOPHILS # (AUTO) 0.1 K/uL (0-0.4); EOSINOPHILS % (AUTO) 1.8 % (0.0-4.0); HEMATOCRIT 39.9 % (36-52); HEMOGLOBIN 13.4 g/dL (12.0-18.0); LYMPHOCYTES % (AUTO) 47.9 % (20.5-51.1); MEAN CORPUSCULAR HEMOGLOBIN 32 pg (27-31); MEAN CORPUSCULAR HGB CONC 34 g/dL (33-37); MEAN CORPUSCULAR VOLUME 95.3 fL (80-94); MONOCYTES # (AUTO) 0.6 K/uL (0.8-1.0); MONOCYTES % (AUTO) 7.4 % (1.7-9.3); NEUTROPHILS # (AUTO) 3.6 K/uL (1.8-7.7); NEUTROPHILS % (AUTO) 42.9 % (42.2-75.2); PLATELET COUNT (AUTO) 421 K/uL (140-450); RED BLOOD CELL COUNT(AUTO) 4.19 MIL/uL (4.20-6.10); RED CELL DISTRIBUTION WIDTH 13.5 % (11.6-13.7); WHITE BLOOD COUNT (AUTO) 8.3 K/uL (4.8-10.8)
[2019-08-28 07:09] LABS: CARBON DIOXIDE 25.6 mmol/L (21-32); CREATININE 0.7 mg/dL (0.7-1.3); POTASSIUM 3.6 mmol/L (3.5-5.1)
--- NOTE | 2019-08-28 07:20 | NUR ---
RECEIVED BEDSIDE REPORT FROM CANNON PINION ADJUSTER NURSE. PATIENT IS AWAKE, ALERT AND ORIENTEDX2. NO SIGNS OF DISTRESS ON RA. SKIN IS INTACT. IV ON L AC 18G, CURRENTLY NOT INFUSING FLUIDS D/T PATIENT REMOVING LINES. PATIENT IS AMBULATORY W ASSIST, FALL RISK PROTOCOL IN PLACE. PATIENT IS CONTINENT. IN 5150 ROOM WITH 1:1 SITTER, ROOM CHECK DONE. BED IN LOW POSITION. WILL CONTINUE TO MONITOR
[2019-08-28 07:21] LABS: MAGNESIUM 2.1 mg/dL (1.8-2.4); PHOSPHORUS 4.5 mg/dL (2.5-4.9)
[2019-08-28 08:00] VITALS: BP 103/57
--- NOTE | 2019-08-28 09:58 | NUR ---
ADMINISTERED MEDS. EDUCATED ON SIDE EFFECTS. PATIENT TOLERATED WELL. WILL CONTINUE TO MONITOR THE PATIENT. 1:1 SITTER AT BEDSIDE
--- NOTE | 2019-08-28 11:06 | NUR ---
Packet received for placement
--- NOTE | 2019-08-28 11:31 | NUR ---
Packet fax to [facility]. S/W [facility] Packet fax to [facility]
--- NOTE | 2019-08-28 11:44 | NUR ---
PATIENT IS SLEEPING. NO SIGNS OF DISTRESS. WILL CONTINUE TO MONITOR THE PATIENT. 1:1 SITTER AT BEDSIDE
--- NOTE | 2019-08-28 11:46 | NUR ---
Packet fax to [facility]
[2019-08-28 12:00] VITALS: BP 96/55
--- NOTE | 2019-08-28 12:02 | NUR ---
Packet fax to Moni Jones s/w Brenda Conway s/w Ch[facility]
--- NOTE | 2019-08-28 13:35 | NUR ---
RECEIVED A CALL FROM [facility], PATIENT IS BEING ACCEPTED TO [facility]. FAMILY AT BEDSIDE. PATIENT STATED HE IS OK TO GO TO [facility]. MOM WANTS HIM TO GO TO [facility]. DR STARKS EXPLAINED THAT IF THERE IS NO BED AVAILABLE IN [facility] THEY NEED TO TRANSFER HIM TO [facility]. MOM IS ATTEMPTING TO CALL [facility] AT THIS TIME
[2019-08-28] MEDS ORDERED: OLAN5TAB1 PO (13:38)
--- NOTE | 2019-08-28 14:23 | NUR ---
PATIENT LISTENING TO MUSIC. FAMILY AT BEDSIDE. WILL CONTINUE TO MONITOR THE PATIENT.
[2019-08-28 16:00] VITALS: BP 111/56
--- NOTE | 2019-08-28 16:18 | NUR ---
PATIENTS MOM UPSET ABOUT THE PATIENT GOING TO [facility]. SHE WANTS HIM TO GO TO [facility] BUT THERE ARE NO BEDS AVAILABLE. SHE WANTED HIM TO GO TO A PLACE IN [place] BUT [facility] WAS UNABLE TO FIND A PSYCH FACILITY IN THE [place] AREA AT THIS TIME. REMOVED IV, TIP INTACT, REMOVED ID BANDS. SECURITY TRIED TO ESCORT FAMILY OUT, BUT FAMILY TOOK PATIENT WITH THEM AND PATIENT ELOPED. CONTACTED [facility] AT [phone]. EXPLAINED TO THEM THAT FAMILY IS ELOPING THE PATIENT WITH A 5150 HOLD. PROVIDED THEM A DESCRIPTION OF THE PATIENT AND FAMILY AND THE VEHICLE TYPE BLACK [employer] AND LICENSE PLACE NUMBER. Addendum: 08/28/19 at 1627 by Jessica Stephens RN DR STARKS IS AWARE
--- NOTE | 2019-08-28 16:50 | NUR ---
POLICE ASKED A FEW QUESTIONS, LEFT MOM A FEW MESSAGES. AND LEFT. NOTIFIED ER, PER [facility] IF PATIENT COMES BACK PATIENT DOES NOT GET ADMITTED HE WILL HAVE TO BE TRANSFERRED TO [facility], HE IS ACCEPTED THERE
== END 2019-08-28 16:18 | disposition left against medical advice (07) | DRG 641 ==
LOC: MED 12:41 → MTU 15:40
PROVIDERS: ADMIT General Practice; ATTEND General Practice
DX: E87.6 Hypokalemia (principal); G93.40 Encephalopathy, unspecified; F29 Unspecified psychosis not due to a substance or known physiological condition; F31.9 Bipolar disorder, unspecified; E05.90 Thyrotoxicosis, unspecified without thyrotoxic crisis or storm; Z88.8 Allergy status to other drugs, medicaments and biological substances
CPT/HCPCS: 36415; 71045; 80048; 80053; 80305; 81001; 82009; 82140; 82550; 82977; 83605; 83690; 83735; 83880; 84100; 84484; 85025; 85379; 85610; 85730; 87040; 87086; 87804; 93005; 93970; G0482; J1644; J2001; J2060; J2405; J3480; J7030; Q0092